=== PATIENT | female | born 1990 | race Caucasian/White ===

== ENCOUNTER 2018-10-26 19:02 | Emergency (ER) | payer BC ==
--- OUTSIDE RECORDS SUMMARY | 2018-10-26 19:04 | XMS REPORT | Clinical Summary ---
:1990 Author Organization [facility] Address [address] [place] [id number] Care Team Providers Name Role Phone Chito Simons MD Primary Care Provider Allergies Active Allergy Reactions Severity Noted Date Comments Cefprozil Rash Low 08/18/2018 Rash all over the body Propoxyphene Other (See Comments) Medium 08/18/2018 Dizziness and N-Acetaminophen blurred vison Medications Not on file Active Problems Not on file Encounters Date Type Specialty Care Team Description 08/16/2018 Transcribe Orders Radiology Martinez Schulz MD Abdominal pain, epigastric (Primary Dx); Nausea; Diarrhea, unspecified type after 10/25/2017 Social History Tobacco Use Types Packs/Day Years Used Date Never Assessed Sex Assigned at Date Recorded Not on file Job Start Date Occupation Industry Not on file Not on file Not on file Travel History Travel Start Travel End No recent travel history available. 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 unspecified type after 10/25/[address] Abdomen Pelvis W Contrast (08/18/2018 3:12 PM ACOUSTICAL INSTALLER) Narrative Performed At EXAMINATION:CT ABDOMEN PELVIS W CONTRAST [facility] CLINICAL HISTORY:R10.13 Epigastric pain, R11.0 Nausea, Abdominal painepigastric COMPARISON:None. TECHNIQUE:CT of the abdomen and pelvis with intravenous contrast. CT imaging was performed with iterative reconstruction techniques and/or automated exposure control to reduce radiation dose. FINDINGS: LOWER THORAX:Unremarkable. HEPATOBILIARY:No focal hepatic lesions. No biliary ductal dilation. Gallbladder is unremarkable. SPLEEN:No splenomegaly. PANCREAS:No focal masses or ductal dilation. ADRENALS:No adrenal nodules. KIDNEYS:No hydronephrosis, stones or solid masses. GI TRACT:Visualized portions of the bowel demonstrate no distention or wall thickening. Normal appendix. PERITONEUM/RETROPERITONEUM:No free air or fluid. No lymphadenopathy. PELVIC ORGANS/BLADDER:Unremarkable. BONES AND SOFT TISSUES:Unremarkable. IMPRESSION: No acute process within the abdomen or pelvis to explain patient's abdominal pain. I personally reviewed the images and the resident's findings and agree with the final report. [facility]-[id number] Procedure Note Interface, Radiology Results Incoming - 08/18/2018 4:12 PM ACOUSTICAL INSTALLER EXAMINATION: CT ABDOMEN PELVIS W CONTRAST CLINICAL HISTORY: R10.13 Epigastric pain, R11.0 Nausea, Abdominal pain epigastric COMPARISON: None. TECHNIQUE: CT of the abdomen and pelvis with intravenous contrast. CT imaging was performed with iterative reconstruction techniques and/or automated exposure control to reduce radiation dose. FINDINGS: LOWER THORAX: Unremarkable. HEPATOBILIARY: No focal hepatic lesions. No biliary ductal dilation. Gallbladder is unremarkable. SPLEEN: No splenomegaly. PANCREAS: No focal masses or ductal dilation. ADRENALS: No adrenal nodules. KIDNEYS: No hydronephrosis, stones or solid masses. GI TRACT: Visualized portions of the bowel demonstrate no distention or wall thickening. Normal appendix. PERITONEUM/RETROPERITONEUM: No free air or fluid. No lymphadenopathy. PELVIC ORGANS/BLADDER: Unremarkable. BONES AND SOFT TISSUES: Unremarkable. IMPRESSION: No acute process within the abdomen or pelvis to explain patient's abdominal pain. I personally reviewed the images and the resident's findings and agree with the final report. [facility]-[id number] Performing Organization Address City/State/Zipcode Phone Number [facility] [id number] [place] [address] after 10/25/2017 Insurance Payer Benefit Plan / Group Subscriber ID Type Phone Address BCBS BCBS CHOICE PPO/FEDERAL EMPL PPO xxxxxxxxxxxx PPO Advance Directives Patient has advance care planning documents on file. For more information, please contact:Krzys[address] [place] [address]
[2018-10-26 19:48] LABS: Absolute Lymphocytes (CBC) 1.6 K/uL (0.7-4.9); Absolute Monocytes 0.3 K/uL (0.1-1.3); Absolute Neutrophil 3.9 K/uL (1.8-8.0); Basophils % 0.4 % (0-1.3); Eosinophils % 1.2 % (0-4.4); Hematocrit 33.1 % (36.0-45.0); Lymphocytes % 27.2 % (15.3-44.8); MPV 8.1 fL (7.6-11.3); Monocytes % 5.8 % (3.3-12.3); RBC Red Blood Cell Count 3.63 M/uL (3.86-4.86)
[2018-10-26] MEDS ORDERED: ACETAMINOPHEN 500 MG TAB ONE (20:02)
[2018-10-26 20:04] LABS: BUN Blood Urea Nitrogen 7 mg/dL (7-18); Bicarbonate 24 mmol/L (21-32); Glucose Level 84 mg/dL (74-106); Potassium 3.2 mmol/L (3.5-5.1); Sodium Level 141 mmol/L (136-145)
--- NOTE | 2018-10-26 21:25 | ER ---
Nurse's Notes [facility] Name: Raza Sanchez Age: 27 yrs Sex: Female : 1990 Arrival Date: 10/26/2018 Time: 19:04 Bed 16 Private MD: Chito Simons Diagnosis: Generalized abdominal pain Presentation: 10/26 19:05 Initial Sepsis Screen: Does the patient meet any 2 criteria? No. Patient's initial cc3 sepsis screen is negative. Does the patient have a suspected source of infection? No. Patient's initial sepsis screen is negative. 19:12 Presenting complaint: Patient states: Abdominal pain to epigastric area that came on lp1 severely today; States hx of abdominal pain prior to , has had endoscopies done with diagnosis of gastritis but wasn't sure if pain was related to ; Denies any vaginal discharge. Transition of care: patient was not received from another setting of care. Onset of symptoms was October 26, 2018. Risk Assessment: Do you want to hurt yourself or someone else? Patient reports no desire to harm self or others. Initial Sepsis Screen:. Care prior to arrival: None. 19:12 Method Of Arrival: Ambulatory lp1 19:12 Acuity: MAUREEN 3 lp1 Triage Assessment: 19:05 General: Appears in no apparent distress. comfortable, Behavior is calm, cooperative, cc3 appropriate for age. Pain: Complains of pain in head Pain currently is 6 out of 10 on a pain scale. Quality of pain is described as aching. EENT: No signs and/or symptoms were reported regarding the EENT system. Neuro: Level of Consciousness is awake, alert, obeys commands, Oriented to person, place, time, situation, Appropriate for age. Cardiovascular: Patient's skin is warm and dry. Respiratory: Airway is patent Respiratory effort is even, unlabored, Respiratory pattern is regular, symmetrical. GI: Abdomen is round 12 weeks as per patient. : No signs and/or symptoms were reported regarding the genitourinary system. Derm: No signs and/or symptoms reported regarding the dermatologic system. Musculoskeletal: Circulation, motion, and sensation intact. Range of motion: intact in all extremities. 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 - Social history:: Smoking status: Patient/guardian denies using tobacco. - Ebola Screening: : No symptoms or risks identified at this time. Screenin:05 Abuse screen: Denies threats or abuse. Denies injuries from another. Nutritional cc3 screening: No deficits noted. Tuberculosis screening: No symptoms or risk factors identified. Fall Risk Ambulatory Aid- None/Bed Rest/Nurse Assist (0 pts). Gait- Normal/Bed Rest/Wheelchair (0 pts) Mental Status- Oriented to own ability (0 pts). Assessment: 19:05 GI: Bowel sounds present X 4 quads. Abd is soft and non tender patient does not cc3 complain of abdominal pain as of the moment. 20:35 Reassessment: Patient appears in no apparent distress at this time. Patient and/or cc3 family updated on plan of care and expected duration. Pain level reassessed. Patient is alert, oriented x 3, equal unlabored respirations, skin warm/dry/pink. 21:40 Reassessment: Patient appears in no apparent distress at this time. Patient and/or cc3 family updated on plan of care and expected duration. Pain level reassessed. Patient is alert, oriented x 3, equal unlabored respirations, skin warm/dry/pink. Dr. Garza discharged the patient home, no prescription given. IV cannula removed and patient left ER vitally stable and ambulatory. Patient denies pain at this time. Patient states feeling better. Patient states symptoms have improved. Vital Signs: 19:15 Weight 77.11 kg; Height 5 ft. 4 in. (162.56 cm); Pain 8/10; lp1 19:20 BP 106 / 54; Pulse 70; Resp 18 S; Temp 98.2(O); Pulse Ox 100% on R/A; Weight 78.02 kg cc3 (R); Height 5 ft. 4 in. (162.56 cm) (R); 20:15 BP 106 / 64; Pulse 71; Resp 17 S; Pulse Ox 100% on R/A; cc3 21:30 BP 108 / 64; Pulse 75; Resp 18 S; Pulse Ox 99% on R/A; cc3 19:20 Body Mass Index 29.52 (78.02 kg, 162.56 cm) cc3 ED Course: 19:04 Patient arrived in ED. rg4 19:04 Chito Simons MD is Private Physician. rg4 19:05 Leyda Charles is Primary Nurse. cc3 19:05 Daquan Garza MD is Attending Physician. ps1 19:05 Patient has correct armband on for positive identification. Bed in low position. Call cc3 light in reach. Side rails up X 1. Pulse ox on. NIBP on. 19:14 Triage completed. lp1 19:15 Arm band placed on left wrist. lp1 19:35 Inserted saline lock: 20 gauge in right antecubital area, using aseptic technique. cc3 Blood collected. 21:23 Dennis Lucas MD is Referral Physician. ps1 21:40 No provider procedures requiring assistance completed. IV discontinued, intact, cc3 bleeding controlled, No redness/swelling at site. Pressure dressing applied. Administered Medications: 19:50 Drug: Tylenol 1000 mg Route: PO; cc3 20:35 Follow up: Response: No adverse reaction; Pain is decreased; headache relieved cc3 Intake: Outcome: 21:24 Discharge ordered by . ps1 21:40 Discharged to home ambulatory. cc3 21:40 Condition: stable 21:40 Discharge instructions given to patient, Instructed on discharge instructions, follow up and referral plans. Demonstrated understanding of instructions, follow-up care. 21:43 Patient left the ED. cc3 Signatures: Ila Mckenna, RN RN lp1 Janiya Brown rg4 Daquan Garza MD MD ps1 Leyda Charles cc3
--- NOTE | 2018-10-26 21:25 | EDPHYS ---
Physician Documentation [facility] Name: Raza Sanchez Age: 27 yrs Sex: Female : 1990 Arrival Date: 10/26/2018 Time: 19:04 Bed 16 Private MD: Chito Simons ED Physician Daquan Garza HPI: 10/26 19:23 This 27 yrs old Female presents to ER via Ambulatory with complaints of ps1 Abdominal Pain, 12 Wks . 19:23 PT is in previous 2/2 failure to progress 2/2 pelvis. Had ps1 previous US for confirmation and dates. Has a hx of gastritis and endometriosis and long hx of non-specific abdominal pain. Today c/o epigastric pain and concern for baby. No VB, ctx, lof, and unable to assess movement. Pain is moderate and non-radiating. No fever, nausea, vomiting, dysuria. Mother is rH negative. . 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 - Social history:: Smoking status: Patient/guardian denies using tobacco. - Ebola Screening: : No symptoms or risks identified at this time. ROS: 19:23 Constitutional: Negative for fever, chills, and weight loss, Eyes: Negative for injury, ps1 pain, redness, and discharge, Cardiovascular: Negative for chest pain, palpitations, and edema, Respiratory: Negative for shortness of breath, cough, wheezing, and pleuritic chest pain, Back: Negative for injury and pain, MS/Extremity: Negative for injury and deformity, Skin: Negative for injury, rash, and discoloration, Neuro: Negative for headache, weakness, numbness, tingling, and seizure. 19:23 Abdomen/GI: Positive for abdominal pain. Exam: 19:23 Constitutional: This is a well developed, well nourished patient who is awake, alert, ps1 and in no acute distress. Head/Face: Normocephalic, atraumatic. Eyes: Pupils equal round and reactive to light, extra-ocular motions intact. Lids and lashes normal. Conjunctiva and sclera are non-icteric and not injected. ENT: Nares patent. No nasal discharge, no septal abnormalities noted. Tympanic membranes are normal and external auditory canals are clear. Oropharynx with no redness, swelling, or masses, exudates, or evidence of obstruction, uvula midline. Mucous membranes moist. Chest/axilla: Normal chest wall appearance and motion. Nontender with no deformity. No lesions are appreciated. Cardiovascular: Regular rate and rhythm. No gallops, murmurs, or rubs. Normal PMI, no JVD. No pulse deficits. Respiratory: Lungs have equal breath sounds bilaterally, clear to auscultation and percussion. No rales, rhonchi or wheezes noted. No increased work of breathing, no retractions or nasal flaring. Abdomen/GI: Soft, non-tender, with normal bowel sounds. No distension or tympany. No guarding or rebound. No evidence of tenderness throughout. Skin: Warm, dry with normal turgor. Normal color with no rashes, no lesions, and no evidence of cellulitis. MS/ Extremity: Pulses equal, no cyanosis. Neurovascular intact. Full, normal range of motion. Neuro: Awake and alert, GCS 15, oriented to person, place, time, and situation. Cranial nerves II-XII grossly intact. Sensory grossly intact. 19:23 Abdomen/GI: POCUS of the abdomen performed at bedside. IUP present with FHT \T\ 158. Small amount of free fluid surrounding the uterus. Possible small DARLIN. This was not an anatomical study. . Vital Signs: 19:15 Weight 77.11 kg; Height 5 ft. 4 in. (162.56 cm); Pain 8/10; lp1 19:20 BP 106 / 54; Pulse 70; Resp 18 S; Temp 98.2(O); Pulse Ox 100% on R/A; Weight 78.02 kg cc3 (R); Height 5 ft. 4 in. (162.56 cm) (R); 20:15 BP 106 / 64; Pulse 71; Resp 17 S; Pulse Ox 100% on R/A; cc3 21:30 BP 108 / 64; Pulse 75; Resp 18 S; Pulse Ox 99% on R/A; cc3 19:20 Body Mass Index 29.52 (78.02 kg, 162.56 cm) cc3 MDM: 19:41 Patient medically screened. ps1 10/26 19:22 Order name: Basic Metabolic Panel; Complete Time: 20:08 [facility] 10/26 19:22 Order name: CBC with Diff; Complete Time: 19:55 [facility] 10/26 19:22 Order name: IV Saline Lock; Complete Time: 19:41 [facility] 10/26 21:18 Order name: Urine Dipstick--Ancillary (enter results); Complete Time: 21:41 cm6 10/26 21:18 Order name: Urine --Ancillary (enter results); Complete Time: 21:41 cm6 10/26 19:22 Order name: Labs collected and sent; Complete Time: 19:41 [facility] 10/26 19:22 Order name: NPO; Complete Time: 19:28 [facility] 10/26 19:22 Order name: Urine Dipstick-Ancillary (obtain specimen); Complete Time: 21:16 ps1 Administered Medications: 19:50 Drug: Tylenol 1000 mg Route: PO; cc3 20:35 Follow up: Response: No adverse reaction; Pain is decreased; headache relieved cc3 Disposition: 10/26/18 21:24 Discharged to Home. Impression: Generalized abdominal pain. - Condition is Stable. - Discharge Instructions: Abdominal Pain, Adult, Pelvic Rest. - Medication Reconciliation Form, Thank You Letter, Antibiotic Education, Prescription Opioid Use, Work release form form. - Follow up: Dennis Lucas MD; When: 48 Hours; Reason: Further diagnostic work-up, Recheck today's complaints, Continuance of care. - Problem is new. Signatures: Dispatcher [employer] EDMS Ila Mckenna RN RN lp1 Daquan Garza MD MD ps1 Leyda Charles cc3 Corrections: (The following items were deleted from the chart) 21:43 21:24 10/26/2018 21:24 Discharged to Home. Impression: Generalized abdominal pain. cc3 Condition is Stable. Forms are Medication Reconciliation Form, Thank You Letter, Antibiotic Education, Prescription Opioid Use. Follow up: Dennis Lucas; When: 48 Hours; Reason: Further diagnostic work-up, Recheck today's complaints, Continuance of care. Problem is new. ps1
[2018-10-26 21:29] LABS: Urine Blood NEGATIVE (NEG); Urine Glucose NEGATIVE (NEG); Urine Protein NEGATIVE (NEG); Urine pH 6.5 (5.0-7.0)
[2018-10-26 21:51] VITALS: TEMP 98.2; O2SAT 100
[2018-10-26 21:52] VITALS: BP 106/64
== END 2018-10-26 21:43 | disposition home or self-care (01) ==
LOC: ER 19:02
DX: O26.892 Other specified pregnancy related conditions, second trimester (principal); K21.9 Gastro-esophageal reflux disease without esophagitis; Z3A.16 16 weeks gestation of pregnancy; Z88.3 Allergy status to other anti-infective agents; Z88.5 Allergy status to narcotic agent
CPT/HCPCS: 36415; 80048; 81003; 81025; 85025; 99284

== ENCOUNTER 2022-06-24 03:43 | Emergency (ER) | payer BC ==
--- OUTSIDE RECORDS SUMMARY | 2022-06-24 03:47 | XMS REPORT | Continuity of Care Document ---
:1990 Author Organization [facility] t Address [address] [place] [address] Care Team Providers Name Role Phone Kristyn Cole MD, Chito Danielson Primary Care Physician [phone] Deirdre Lay Attending Clinician Unavailable Angle Mccurdy MD Attending Clinician Franklin Baez Attending Clinician Unavailable Doctor Unassigned, [place] Attending Clinician Unavailable Gumaro cMkeon DO Attending Clinician TRAVIS LAYNE Attending Clinician Unavailable Shawn Smart Attending Clinician Unavailable Deirdre Lay Admitting Clinician Unavailable Chito Simons Admitting Clinician Unavailable Physician, No Primary or Family Admitting Clinician Unavaila ble Payers Payer Name Policy Type Policy Number Effective Date Expiration Date S ernesto BCBSTX PPO AND [id number] 2020 00:00:00 OUT OF STATE Problems Condition Condition Condition Status Onset Resolution Last Treating Co mments Source Name Details Category Date Date Treatment Clinician Date No known No known Disease [place] active active Health problems problems Allergies, Adverse Reactions, Alerts Allergy Allergy Status Severity Reaction(s) Onset Inactive Treating Comm ents Source Name Type Date Date Clinician propoxyp DA Active SV BLURRY 2021-07 [facility] V[facility]-17 [facility] [place] cefprozi DA Active SV RASH 2021-07 [facility] l 1-17 [facility] [place] Propoxyp Propensi Active 2021-07 [facility] hene ty to 07-11 Health adverse 00:00: reaction 00 s Cephalos Propensi Active 2021-07 UT porins ty to 07-11 Health adverse 00:00: reaction 00 s cefprozi DA Active SV RASH 2021-07 [facility] 0-04 [facility] 00:[facility]: [facility] [place] propoxyp DA Active SV BLURRY 2020-07 [facility] VISION 2-15 [facility] 00:00: [facility] [place] acetamin DA Active SV BLURRY 2020-07 [facility] ophen VISION 2-15 Woman[facility] 00:00: [facility] [place] cefprozi DA Active SV RASH 2020-07 [facility] l 2-15 [facility] 00:00: [facility] [place] propoxyp DA Active U BLURRY 2019-07 [facility] VISION 0-28 [facility] 00:00: [facility] [place] acetamin DA Active U BLURRY 2019-07 [facility] ophen VISION 0-28 Woman[facility] 00:00: [facility] [place] cefprozi DA Active U RASH 2019-07 H[facility] l 0-28 [facility] 00:00: [facility] [place] propoxyp DA Active U 2019-07 [facility] hene 0-28 West 00:00: [address] acetamin DA Active U 2019-07 [facility] ophen 0-28 West 00:00: [address] cefprozi DA Active U 2019- HCA l 0-28 West 00:00: [address] propoxyp DA Active DE 2018-07 [facility] hene 0-18 Clear napsylat 00:00: Garcia e 00 [facility] cefprozi DA Active DE 2018-07 HCA l 0-18 Clear 00:00: [place] 00 [facility] Propoxyp Propensi Active Other - See Dizzines s Univers hene ty to comments 2-08 and ity of N-Acetam adverse 00:00: blurred [place] [facility] Cef[facility] Propensi Active Rash 2018- Rash all UT l ty to 2-08 over the Health adverse 00:00: body reaction 00 s Cefprozi Propensi Active Rash 0 Rash all Meth alexander l ty to 2-[address] adverse 00:00: body Hospita reaction 00 l s to drug Propoxyp Propensi Active Other (See Dizziness Methodi hene ty to Comments) [address] N-Acetam adverse 00:00: blurred Hospit a inophen reaction 00 vison l s to drug PROPOXYP DRUG Active Med Other-Cmnt 2018-0 Univ ers HENE 2-08 ity of N-ACETAM 00:00: [place] INOPHEN 00 [facility] CEFPROZI DRUG Active Low Rash 2018-0 Univers L INGREDI 2-08 ity of 00:00: [address] propoxyp DA Active DE 2013-07 [facility] hene 1-11 Clear napsylat 00:00: [place] e [facility] cefprozi DA Active DE 2013-07 HCA l 1-11 Clear 00:00: [place] [facility] NO KNOWN Drug Active Univers ALLERGIE Class ity of S [facility] Social History Social Habit Start Date Stop Date Quantity Comments Source Cigarettes smoked 2022-05-11 2022-05-11 [facility] current (pack per 00:00:00 00:00:00 day) - Reported Cigarette 2022-05-11 2022-05-11 [facility] pack-years 00:00:00 00:00:00 Tobacco use and 2022-05-11 2022-05-11 Smokeless tobacco [facility] exposure 00:00:00 00:00:00 non-user Alcohol intake 2022-05-11 2022-05-11 Ex-drinker [facility] 00:00:00 00:00:00 (finding) Exposure to 2022-04-30 2022-05-10 Not sure [facility] SARS-CoV-2 (event) 00:00:00 22:47:00 History of tobacco 2009-02-08 2015-02-08 Cigarette Smoker [facility] use 00:00:00 00:00:00 Sex Ass[birth year] At [birth year] [facility] Smoking Status Start Date Stop Date Source Tobacco smoking [facility] consumption unknown Ex-smoker 2022-05-11 00:00:00 2022-05-11 [facility] 00:00:00 Never smoker [facility] Medications Ordered Filled Start Stop Current Ordering Indication Dosage Frequency Signature Comments Components Source Medication Medication Date Date Medication? Clinician (SIG) Name Name jessica 2021-07- Yes [id number] 1{tbl} Q6H Take 1 [place] en-codeine 07-11 tablet by [facility] (Tylenol w/ 00:00: 05:59 mouth Codeine #3) 00 :00 every 6 300-30 MG (six) tablet hours if needed for severe pain for up to 5 days. cetirizine 2021-07 Yes UT (ZyrTEC 0-24 Health ALLERGY) 10 00:00: MG tablet 00 diphenhydrA 2021-07 Yes UT MINE 0-24 Health (Diphen) 25 00:00: MG tablet 00 Dextrometho 2021-07 Yes UT rphan-guaiF 0-18 [facility] ENesin 00:00: (Mucinex 00 DM) 30-600 MG tablet sustained-r elease 12 hour buPROPion Yes TAKE 1 [place] XL 9-26 TABLET BY [facility] (Wellbutrin 00:00: MOUTH XL) 300 MG 00 EVERY DAY 24 hr IN THE tablet MORNING FOR 90 DAYS Ferrous Yes UT Sulfate 3-14 Health Dried ER 00:00: (Slow 00 Release Iron) 45 MG tablet controlled- release Magnesium Yes UT 250 MG 3-14 Health tablet 00:00: 00 Ascorbic Yes UT Acid 3-14 Health (vitamin C) 00:00: 250 MG 00 tablet docusate Yes UT sodium 3-14 Health (Stool 00:00: Softener) 00 100 MG tablet Esomeprazol Yes UT e Magnesium 2-01 Health 20 MG 00:00: tablet 00 delayed-rel ease esomeprazol Yes 20mg Inject 20 U nivers e 20 mg 1-19 mg ity of injection 21:17[place] daily Medical with Branch breakfast. esomeprazol Yes 20mg Inject 20 U nivers e 20 mg 1-19 mg ity of injection 15:17: [place] daily Medical with Branch breakfast. fluconazole Yes Univer s 150 mg 1-14 ity of tablet 00:00: [place] [facility] Branch fluconazole Yes Univer s 150 mg 1-14 ity of tablet 00:00: [place] [address] Medical Branch metroNIDAZO 2019- Yes 500mg Take 500 U nivers LE 500 mg 2-17 mg by ity of tablet 00:00: mouth 2 [place] (two) Medical times Branch daily. metroNIDAZO 2019-07 Yes 500mg Take 500 U nivers LE 500 mg 2-17 mg by ity of tablet 00:00: mouth 2 [place] (two) Medical times Branch daily. HYDROcodone 2019-07 Yes TAKE 1 Univ ers -acetaminop 1-03 TABLET BY ity of hen 10-325 00:00: MOUTH [place] mg tablet 00 EVERY 4 Medical HOURS Branch NEEDED FOR PAIN HYDROcodone 2019-07 Yes TAKE 1 Univ ers -acetaminop 1-03 TABLET BY ity of hen 10-325 00:00: MOUTH [place] mg tablet 00 EVERY 4 Medical HOURS Branch NEEDED FOR PAIN Immunizations Ordered Filled Immunization Date Status Comments [facility] e Immunization Name Name SARS-COV-2 COVID-19 2021-01-12 Completed Unive rsity of PFIZER VACCINE 00:00:00 [facility] SARS-COV-2 COVID-19 2020-12-22 Completed Unive rsity of PFIZER VACCINE 00:00:00 [facility] Influenza Virus 2020-07-29 Completed Universit y of Vaccine Quad .5 mL 00:00:00 [place] [facility] 6+ MO Branch Influenza Virus 2020-07-29 Completed Universit y of Vaccine Quad .5 mL 00:00:00 [facility] 6+ MO Branch Vital Signs Vital Name Observation Time Observation Value Comments Source Body height 2022-05-11 20:29:00 162.6 cm [facility] Body weight 2022-05-11 20:29:00 83.008 kg [facility] BMI 2022-05-11 20:29:00 31.41 [facility]2 [facility] Systolic blood pressure 2022-05-11 20:29:00 130 mm[Hg] [facility] Diastolic blood pressure 2022-05-11 20:29:00 81 mm[Hg] [facility] Heart rate 2022-05-11 20:29:00 116 /min [facility] Body temperature 2022-05-11 20:29:00 34.78 Shaye [facility] Procedures Procedure Date / Time Performed Performing Clinician [facility] e [id number] 2022-05-27 00:00:00 [facility] [id number] 2022-05-27 00:00:00 [facility] GENERAL 2022-05-12 01:32:51 Angle Mccurdy [facility] EXTERNAL PROVIDER 2021-07-13 06:01:00 Doctor Unassigned, No Univ [facility] RECORDS Name Medical Branch Plan of Care Planned Activity Planned Date Details Comments Source Future Scheduled 2022-05-16 Screening for [facility] Test 10:32:47 malignant neoplasm of cervix (procedure) [code = 485854034] Future Scheduled 2022-05-16 INFLUENZA VACCINE [facility] Test 10:32:47 [code = INFLUENZA VACCINE] Future Scheduled 2022-05-16 [facility] Test 10:32:47 VACCINES (1 of 3 - 3-dose series) [code = HEPATITIS B VACCINES (1 of 3 - 3-dose series)] Future Scheduled 2022-05-16 [facility] 10:32:47 (#1) [code = COVID-19 VACCINE (#1)] Future Scheduled 2022-05-16 [facility] Test 10:32:47 VACCINES (1 of 3 - 3-dose series) [code = HEPATITIS B VACCINES (1 of 3 - 3-dose series)] Future Scheduled 2022-05-16 COVID-19 VACCINE [facility] Test 10:32:47 (#1) [code = COVID-19 VACCINE (#1)] Future Scheduled 2022-05-16 Screening for [facility] Test 10:32:47 malignant neoplasm of cervix (procedure) [code = 006608451] Future Scheduled 2022-05-16 INFLUENZA VACCINE Method ist Hospital Test 10:32:47 [code = INFLUENZA VACCINE] Future Scheduled 2022-05-16 Screening for [facility] Test 10:32:47 malignant neoplasm of cervix (procedure) [code = 116443380] Future Scheduled 2022-05-16 INFLUENZA VACCINE Method ist Hospital Test 10:32:47 [code = INFLUENZA VACCINE] Future Scheduled 2022-05-16 [facility] Test 10:32:47 VACCINES (1 of 3 - 3-dose series) [code = HEPATITIS B VACCINES (1 of 3 - 3-dose series)] Future Scheduled 2022-05-16 COVID-19 VACCINE [facility] Test 10:32:47 (#1) [code = COVID-19 VACCINE (#1)] Future Scheduled 2022-03-13 COVID-19 VACCINE [facility] Test 00:02:42 (#1) [code = COVID-19 VACCINE (#1)] Future Scheduled 2022-03-13 Screening for [facility] Test 00:02:42 malignant neoplasm of cervix (procedure) [code = 148285815] Future Scheduled 2022-03-13 INFLUENZA VACCINE Method ist Hospital Test 00:02:42 [code = INFLUENZA VACCINE] Future Scheduled 2022-03-13 [facility] Test 00:02:42 VACCINES (1 of 3 - 3-dose series) [code = HEPATITIS B VACCINES (1 of 3 - 3-dose series)] Future Scheduled 2022-03-13 COVID-19 VACCINE Method[facility] Hospital Test 00:02:42 (#1) [code = COVID-19 VACCINE (#1)] Future Scheduled 2022-03-13 Screening for [facility] Test 00:02:42 malignant neoplasm of cervix (procedure) [code = 123840227] Future Scheduled 2022-03-13 INFLUENZA VACCINE Method ist Hospital Test 00:02:42 [code = INFLUENZA VACCINE] Future Scheduled 2022-03-13 [facility]ITIS B [facility] Test 00:02:42 VACCINES (1 of 3 - 3-dose series) [code = HEPATITIS B VACCINES (1 of 3 - 3-dose series)] Encounters Start End Encounter Admission Attending Care Care Encounter Source Date/Time Date/Time Type Type Clinicians Facility Department ID 2022-05-11 Outpatient [facility] [id number] [place] 08:01:25 [id number] [facility] 2022-05-10 Outpatient [facility] [id number] [place] 07:50:35 [id number] [facility] 2022-05-06 Outpatient [facility] [id number] [place] 14:36:04 [id number] [facility] 2022-05-27 2022-05-30 Inpatient EDILSON Lay [facility] OBPP [id number] [id number] [facility] 09:10:00 14:45:00 Deirdre [facility] 2022-05-11 2022-05-11 Office EDER Mccurdy [id number] [place] 15:00:00 16:18:31 Visit Angle BROOKE [id number] H [facility] [id number] 2022-04-13 2022-04-13 Emergency EL Alireza [facility] DOYLE F000 [id number] [facility] 19:05:00 22:10:00 Deirdre 94 [facility] [place] 2022-03-19 2022-03-19 Emergency EM Ohlemac, [facility] DOYLE [id number] [id number] [facility] 11:21:00 15:15:00 Deirdre 47 [facility] [place] 2022-02-25 2022-02-25 Emergency EM Laura-G [facility] VALENTINO F000 [id number] [facility] 18:12:00 22:31:00 omeken, 84 [facility] [place] [facility] 2021-07-13 2021-07-13 Orders Doctor GANN [id number] Univers 00:00:00 00:00:00 Only Unassigned, STEPHEN [id number] ity of [place] [facility] [id number] Jorge as [id number] Medi daisy [address] [place] 2021-06-25 2021-06-25 Outpatient WILIAM McphersonWH [id number] [facility] 13:40:00 13:40:00 Deirdre 29 [facility] [place] [facility] 2020-12-22 2020-12-22 Outpatient [facility] [id number] Univers 11:10:00 [facility]10[facility] 2020-09[facility] 2020-09-30 [facility] [id number] Univers 00:00:00 00:00:00 Outreach Gumaro PRIMARY [id number] i ty of [facility] [id number] Kiersten DOOLEY [id number] Or dical 388 [place] 2020-07-29 2020-07-29 Outpatient R TRAVIS LAYNE [facility] [id number] Univers 14:30:00 14:30:00 [facility] 2020-05-13 2020-05-13 Outpatient WILIAM SmartU SURG [id number] [facility] 10:25:00 10:25:00 Shawn 40 [facility] Results Test Description Test Time Test Comments Results Result Comments Source SURGICAL 2022-05-31 17:25:00 Test Item Value Reference Range Interpretation Comme nts SURGICAL RUN DATE: (test 05/31/22 [facility] PAGE 1 RUN TIME: 1725 Specimen Inquiry RUN USER: INTERFACE code = PATIENT: ANA CRISTINA DIAZ LOC: STACIE U #: [id number] AGE/SX: 31/F ROOM: RE05/27/22REG DR: Belle Lay : 89 BED: A DIS: 05/30/22 STATUS: DIS IN TLOC: SPEC #: [id number] RECD: STATUS: DESTINEY RE #: [id number] ASPEN: 05/27/221123 [facility] DR: Deirdre Lay MD ENTE RED: 05/28/22 SP TYPE: SURGICAL OTHR DR: No Primary or Family Physician Chito Simons MDORDERED: AN ATOMIC SPEC/2, SPEC TRACK, / COPIES TO: No Primary or Family Physician Deirdre Lay MD [address] [facility] [address] [place] [address] [email or web address] Chito Simons MD [address] [place] [address] PROCEDURES: [id number] (05/28/22) TISSUES: A. FALLOPIAN TUBE, RIGHT B. FALLOPIAN TUBE, LEFT FINAL DIAGNOSIS A. FALLOPIAN TUBE, RIGHT, EXCISION FOR ST ERILIZATION: - Fallopian tube, completely transected, with paratubal cyst. B. FALLOPIAN TUBE, LEFT, EXC ISION FOR STERILIZATION: - Fallopian tube, completely transected, with paratubal cyst. GROSS DESCRI PTION A. -Received in formalin labeled with Patient's name, , MRN and "right fallopian tube";consi sts of a fimbriated fallopian tube that is 7 x 0.8 cm, displays a single paratubalcyst that is 0.8 cm diameter. Upon sectioning reveals an unremarkable lumen that averages0.3 cm diameter. Filter Machine Operator sec tions are submitted in A1. B. -Received in formalin labeled with Patient's name, ARMANDO, N and "left fal lopian tube ";consists of a fimbriated fallopian tube that is 6.5 x 0.7 cm, displays multiple paratubalc yst measuring 0.1-0.3 cm each. Upon sectioning reveals an unremarkable lumen thataverages 0.3 cm diameter . Filter Machine Operator sections are submitted in B1. XZ 05/28/22 CONTINUED ON NEXT PAGE RUN DATE: 05/31/22 [facility] PAGE 2 RUN TIME: 1725 Specimen Inquiry RUN USER: INTERFACE SPEC #: [id number] PATIENT: ANA CRISTINA BOTELLO SHAUNA #[id number] (Continued) DARIANA DESCRIPTION (Continued ) Technical component performed at [facility],[address], [place] [address] Unless gross only, the diagnosis is based upon microscopic examination.Immunohistochemistry: This test was developed and its performance characteristicsdetermined by this laboratory. It has not been approved nor does it ne ed approval by [place] FDA. Appropriate positive and negative controls are reviewed and judged to beacc eptable. This laboratory is certified under the Clinical Laboratory ImprovementAmendments (CLIA- 88) as qualified to perform high complexity clinical laboratory testing. CLINICAL INFORMATION 2, OUT OF BODY/ IN FORMALIN: SPECIMEN A: 1124A/2230P, SPECIMEN B: 1152A/2230P, ,39.2 WEEKS. Signed SIGNATURE ON FILE Elroy Palumbo 05/31/22 17 25 END OF REPORT CBC W/AUTO [id number] 14:10:00 Test Item Value Reference Range Interpretation Comments WHITE BLOOD CELL (test code = WBC) 7.6 K/mm3 6.5-12.3 N RED BLOOD CELL (test code = RBC) 3.23 M/mm3 3.51-4.69 L HEMOGLOBIN (test code = HGB) 10.8 g/dL 10.1-13.8 N HEMATOCRIT (test code = HCT) 32.4 % 32.5-41.8 L MEAN CELL VOLUME (test code = MCV) 100.3 fL 84.6-96.6 H MEAN CELL HGB (test code = MCH) 33.4 pg 27.3-33.9 N MEAN CELL HGB CONCETRATION (test 33.3 gm/dL 32.0-34.2 N code = MCHC) RED CELL DISTRIBUTION WIDTH (test 13.2 % 12.2-16.3 N code = RDW) PLATELET COUNT (test code = PLT) 166 K/mm3 134-363 N MEAN PLATELET VOLUME (test code = 10.3 fL 9.2-12.7 N MPV) NEUTROPHIL % (test code = NT%) 65.9 % 57.9-77.3 N LYMPHOCYTE % (test code = LY%) 25.5 % 14.5-29.7 N MONOCYTE % (test code = MO%) 5.9 % 3.6-10.2 N EOSINOPHIL % (test code = EO%) 1.8 % 0.0-3.0 N BASOPHIL % (test code = BA%) 0.4 % 0.1-0.9 N NEUTROPHIL # (test code = NT#) 5.0 K/mm3 LYMPHOCYTE # (test code = LY#) 1.9 K/mm3 MONOCYTE # (test code = MO#) 0.5 K/mm3 EOSINOPHIL # (test code = EO#) 0.14 K/mm3 BASOPHIL # (test code = BA#) 0.0 K/mm3 RBC MORPHOLOGY REQUIRED (test code NORMAL NORMAL = RBCM) PLATELET MORPHOLOGY REQUIRED (test NORMAL NORMAL code = PLTMR) HGB [id number] 08:10:00 Test Item Value Reference Range Interpretation Comments HEMOGLOBIN (test code = HGB) 10.5 g/dL 10.1-13.8 N HEMATOCRIT (test code = HCT) 31.2 % 32.5-41.[address] - [facility] BIO PH MT W/O [id number] 00:00:00 [facility] BOTELLO : 1990 Sex: F Patient Name: ANA CRISTINA BOTELLO Unit No: [id number] EXAMS: CPT CODE: [id number] US FET BIO PH MT W/O NST 56330 PROCEDURE INFORMATION: Exam: US Biophysical Profile Without Non-Stress TestExam date and time: 04/13/2022 9:30 PM Age: 31 years old Clinical indication: status abnormalities: ; movements, decreased; Single gestation; Third trimester (=28 weeks 0 days); ; Add itional info: Dfm @ 33 weeks TECHNIQUE: Imaging protocol: US biophysical profile without non-stress testing. ADDITIONAL STUDY INFORMATION: Amniotic fluid index: ADRIANA is 10.7 cm. heart rate: 135 bpm COMPARISON: OT US FET BIO PH MT W/O NST 03/19/2022 12:04 PM Gestational age (Established): 33 weeks 0days Estimated due date (Established): 06/01/2022 Cephalic presentation. The cervix is closed with ameasured length of 3.6 cm. Posterior fundal grade 2 placenta without placenta previa. Normal amniotic fluid index of 10.7 cm. heart rate of 135 bpm. The fetus meets the biophysical profile criteria for breathing movement, gross body movement, tone and amniotic fluid volume giving a bi ophysical profile score of 8/8. The ovaries were not identified. No adnexal masses or pelvic fluid collections are noted. IMPRESSION: Single intrauterine in cephalic presentation with heart rate of 135 bpm. No evidence of placenta previa. Normal amniotic fluid index of 10.7 cm. biophysical profile score of 8/8. SL: 131 at 2244 Reported and signed by: Db Gaines MD [facility] NAME: ANA CRISTINA BOTELLO Radiology Department PHYS: Ritika Mejias MD [address] : 1990 AGE: 31 SEX: F [place], [place] [address] LOC: F.DOYLE PHONE #: [phone] EXAM DATE: 04/13/2022 STATUS: REG ER FAX #: [phone] RAD NO: Page 1 Signed Report (CONTINUED) Patient Name: ANA CRISTINA BOTELLO Unit No: [id number] EXAMS: CPT CODE: [id number] US FET BIO PH MT W/O NST 40939 (Continued) CC: Ritika Wills MD; Deirdre Lay MD Technologist: Farideh Goodwin RDMS Probe: Trnscrbd D/ (2243) GCD.CPS Orig Print D/T: S: 04/13/2022 (2243) [facility] NAME: GIRISHSONAMCARISSAANA CRISTINAHimanshu KELLEYE Radiology Department PHYS: Ritika Mejias MD [address] : 1990 AGE: 31 SEX: [place] [address] LOC: ZEHRAED PHONE #: [phone] EXAM DATE: 04/13/2022 STATUS: REG ER FAX #: [phone] RAD NO: Page 2 Signed Report Patient Name: ANA CRISTINA BOTELLO Unit No: [id number] EXAMS: CPT CODE: [id number] US FET BIO PH MT W/O NST 12310 (Continued) [facility] NAME: ANA CRISTINA BOTELLO Radiology Department PHYS: Ritika Mejias MD [address] : 1990 AGE: 31 SEX: [place] [address] ACCT NO: [id number] LOC: SanjayDOYLE PHONE #: [phone] EXAM DATE: 04/13/2022 STATUS: REG ER FAX #: [phone] RAD NO: Page 3 Signed Report- US FET BIO PH MT W/O NST 2022-03-19 00:00:00 [facility] : 1990 Sex: F Patient Name: ANA CRISTINA BOTELLO Unit No: [id number] EXAMS: CPT CODE: [id number] US FET BIO PH MT W/O NST 28147 PROCEDURE INFORMATION: Exam: US Biophysical Profile Without Non-Stress TestExam date and time: 03/19/2022 12:04 PM Age: 31 years old Clinical indication: status abnormalities: ; movements, decreased; Single gestation; Third trimester (=28 weeks 0 days); ; Prior surgery; Additional info: Jose L TECHNIQUE: Imaging protocol: US biophysical profile without non-stress testing. COMPARISON: OT US LTD 02/25/2022 7:30 PM FINDINGS: IRASEMA (known) 06/08/2022. GA (known IRASEMA) 29 weeks 3 days heart rate: 145 bpm Presentation: Breech Placenta: Posterior fundal, grade 2, no evidence of placenta previa. Amniotic fluid index: 15.2 cm Cervix: 3.5 cm. BIOPHYSICAL PROFILE: Breathin/2 Gross body movements: 2/2 tone: 2/2 Qualitative amniotic fluid: 2/2 Biophysical Profile Score: 8/8 UMBILICAL ARTERY S/D ratio: not ordered IMPRESSION: Biophysical profile score is 8 out of 8. at 1234 Reported and signed by: Shruthi Fontana MD CC: Deirdre Lay MD Technologist: Emma Stephenson RDMS Probe: Trnscrbd D/ (1234) GCD.CPS Orig Print D/T: S: 03/19/2022 (1234) [facility] NAME: ANA CRISTINA BOTELLO Radiology Department PHYS: Deirdre Khoury [address] : 1990 AGE: 31 SEX: [place] [address] LOC: KATY PHONE #: [phone] EXAM DATE: 03/19/2022 STATUS: REG ER FAX #: [phone] RAD NO: Page1 Signed Report Patient Name: ANA CRISTINA BOTELLO Unit No: [id number] EXAMS: CPT CODE: [id number] [facility] BIO PH MT W/O NST 07756 (Continued) [facility] NAME: ANA CRISTINA BOTELLO WARRENDightondiology Department PHYS: Deirdre Khoury [address] : 1990 AGE: 31 SEX: [place] [address] LOC: KATY PHONE #: [phone] EXAM DATE: 03/19/2022 STATUS: REG ER FAX #: [phone] RAD NO: Page 2 Signed ReportCBC W/AUTO [id number] 19:31:00 Test Item Value Reference Range Interpretation Comments WHITE BLOOD CELL (test code = WBC) 8.2 K/mm3 6.5-12.3 N RED BLOOD CELL (test code = RBC) 3.59 M/mm3 3.51-4.69 N HEMOGLOBIN (test code = HGB) 11.8 g/dL 10.1-13.8 N HEMATOCRIT (test code = HCT) 34.2 % 32.5-41.8 N MEAN CELL VOLUME (test code = MCV) 95.3 fL 84.6-96.6 N MEAN CELL HGB (test code = MCH) 32.9 pg 27.3-33.9 N MEAN CELL HGB CONCETRATION (test 34.5 gm/dL 32.0-34.2 H code = MCHC) RED CELL DISTRIBUTION WIDTH (test 12.6 % 12.2-16.3 N code = RDW) PLATELET COUNT (test code = PLT) 196 K/mm3 134-363 N MEAN PLATELET VOLUME (test code = 10.2 fL 9.2-12.7 N MPV) NEUTROPHIL % (test code = NT%) 72.2 % 57.9-77.3 N LYMPHOCYTE % (test code = LY%) 21.7 % 14.5-29.7 N MONOCYTE % (test code = MO%) 4.9 % 3.6-10.2 N EOSINOPHIL % (test code = EO%) 0.6 % 0.0-3.0 N BASOPHIL % (test code = BA%) 0.1 % 0.1-0.9 N NEUTROPHIL # (test code = NT#) 5.9 K/mm3 LYMPHOCYTE # (test code = LY#) 1.8 K/mm3 MONOCYTE # (test code = MO#) 0.4 K/mm3 EOSINOPHIL # (test code = EO#) 0.05 K/mm3 BASOPHIL # (test code = BA#) 0.0 K/mm3 RBC MORPHOLOGY REQUIRED (test code NORMAL NORMAL = RBCM) PLATELET MORPHOLOGY REQUIRED (test NORMAL NORMAL code = PLTMR) COMPREHENSIVE METABOLIC [id number] 19:24:00 Test Item Value Reference Range Interpretation Comments SODIUM (test code = NA) 139 mEq/L 135-145 N POTASSIUM (test code = K) 4.0 mEq/L 3.5-5.0 N CHLORIDE (test code = CL) 102 mEq/L 100-115 N CARBON DIOXIDE (test code = CO2) 28 mEq/L 22-31 N ANION GAP (test code = GAP) 12.70 10-20 N GLUCOSE (test code = GLU) 82 mg/dL 65-110 N BLOOD UREA NITROGEN (test code = 8 mg/dL 7-18 N BUN) GLOMERULAR FILTRATION RATE (test 145 ml/min >60 N code = GFR) CREATININE (test code = CREAT) 0.5 mg/dL 0.5-1.0 N TOTAL PROTEIN (test code = PROT) 6.8 gm/dL 6.3-8.2 N ALBUMIN (test code = ALB) 3.4 gm/dL 3.4-4.8 N CALCIUM (test code = CA) 9.0 mg/dL 8.4-10.2 N BILIRUBIN TOTAL (test code = BILT) 0.3 mg/dL 0.2-1.0 N SGOT/AST (test code = AST) 18 units/L 15-37 N SGPT/ALT (test code = ALT) 21 units/L 12-78 N ALKALINE PHOSPHATASE TOTAL (test 53 units/L 46-116 N code = ALKP) UA RFLX MICR CULT IF [id number] 19:04:00 Test Item Value Reference Range Interpretation Comments UA COLOR (test code = COLU) YELLOW YELLOW UA APPEARANCE (test code = CLEAR CLEAR APPU) UA GLUCOSE DIPSTICK (test code NEGATIVE NEG = DGLUU) UA BILIRUBIN DIPSTICK (test NEGATIVE NEG code = BILU) UA KETONE DIPSTICK (test code NEGATIVE NEG = KETU) UA SPECIFIC GRAVITY (test code 1.017 1.001-1.035 N = SGU) UA BLOOD DIPSTICK (test code = NEG NEG GOLDEN) UA PH DIPSTICK (test code = 7.0 5-9 PRITI) UA PROTEIN DIPSTICK (test code NEGATIVE NEG = PROU) UA UROBILINIOGEN DIPSTICK NEGATIVE mg/dL NEG (test code = URO) UA NITRITE DIPSTICK (test code NEG NEG = KOREY) UA LEUKOCYTE ESTERASE DIPSTICK NEG NEG (test code = LEUU) UA WBC (test code = WBCU) 0-2 #/hpf NONE SEEN UA EPITHELIAL CELLS (test code RARE #/HPF RARE-FEW = EPIU) UA MUCUS (test code = MUCU) RARE NONE SEEN Indication for culture: Suprapubic PainSpecimen Description: CLEAN CATCH- US [id number] 00:00:00 [facility] : 1990 Sex: F Patient Name: ANA CRISTINA BOTELLO Unit No: [id number] EXAMS: CPT CODE: [id number] US LTD 29627 PROCEDURE INFORMATION: Exam: US , Limited Exam date and time: 02/25/2022 7:30 PM Age: 31 years old Clinical indication: Screening exam; Other: evaluation after toxic exposure 25 weeks; LABS AND CLINICAL REPORTS: Estimated due date (Established): 06/08/2022 TECHNIQUE: I maging protocol: Real-time ultrasound of the maternal uterus with image documentation. Examfocused on the clinical indication. COMPARISON: No relevant prior studies available. FINDINGS: Gestation: Live single intrauterine gestation. Presentation: Transverse, head maternal left heart rate: 147 bpm Amniotic fluid index: ADRIANA is 14.3 cm. Placenta: Posteriorly situated without previa Cervix: Closed, 4.2 cm MATERNAL: Cervix: Cervical length measures 4.2 cm. Right ovary/adnexa: Right ovary measures 2.8 cm x 2 cm x 1.7 cm. Right ovarian volume is 4.9 mL. Left ovary/adnexa: Left ovary measures 3.2 cm x 2.6 cm x 1.6 cm. Left ovarian volume is 6.9 mL. IMPRESSION: Live single intrauterine gest ation Normal ADRIANA Unremarkable appearance of placenta and cervix at 2101 Reported and signed by: Lester Barr MD CC: Franklin Baez MD; Chito Simons MD Technologist: Ana Mohan RDMS Probe: Trnscrbd D/ (2100) GCD.CPS Orig Print D/T: S: 02/25/2022 (2150) [facility] NAME: ANA CRISTINA BOTELLO Radiology Department PHYS: Franklin Salazar [address] : 1990 AGE: 31 SEX: F [place], [place] [address] LOC: JORGE PHONE #: [phone] EXAM DATE: 02/25/2022 STATUS: REG ER FAX #: [phone] RAD NO: Page 1 Signed Report Patient Name: GIRISHSONAMCARISSAANA CRISTINA Unit No: [id number] EXAMS: CPT CODE: [id number] US LTD 50238 (Continued) [facility] NAME: ANA CRISTINA BOTELLO SHAUNA Radiology Department PHYS: [place] Abisai Laura-RinconFranklin [address] : 1990 AGE: 31 SEX: F [place], [place] [address] LOC: JORGE PHONE #: [phone] EXAM DATE: 02/25/2022 STATUS: REG ER FAX #: [phone] RAD NO: Page 2 Signed [id number] 16:56:00 Test Item Value Reference Range Interpretation Comments SURGICAL (test code = SR) -----RUN DATE: 07/01/21 [facility] PAGE 1 RUN TIME: 1656 Specimen Inquiry RUN USER: INTERFACE -----PATIENT: HAYLEETRAMAINEFEROZANA CRISTINA VILLATORO LOC: [place] U #: [id number] AGE/SX: 30/F ROOM: RE06/25/21REG DR: Deirdre Lay : [birth year] BED: DIS: STATUS: PRE SDC TLOC: ----- SPEC #: [id number] RECD: 06/25/21 STATUS: DESTINEY KEMP #: [id number] ASPEN: 06/25/21 DR: Deirdre Lay MD ENTERED: 06/25/21 SP TYPE: SURGICAL OTHR DR: Chito Simons MD ORDERED: ANATOMIC SPEC, SPEC TRACK, [id number] COPIES TO: Deirdre Lay MD [address] [facility] [address] [place] [address] [email or web address] Chito Simons MD [address] [address] PROCEDURES: [id number] (06/25/21) TISSUES: A. PRODUCTS OF CONCEPTION - SPONTANEOUS/MISSED FINAL DIAGNOSIS UTERINE CONTENTS, PRODUCTS OF CONCEPTION:- Immature chorionic villi, fragments of inflamed and necrotic decidua, and gestationalendometrium, consistent with products of conception. GROSS DESCRIPTION The specimen is received in formalin labeled, "products of conception" and consists ofmultiple irregular brown- zamarripa spongy tissues admixed with abundant amount of friable bloodclot material measuring 4.2 x 2.5 x 0.5 cm in aggregate. The specimen is entirelysubmitted in blocks A1-A5 Technical component performed at [facility],[id number] , [place] [address] Unless gross only, the diagnosis is based upon microscopic examination.Immunohistochemis try: This test was developed and its performance characteristicsdetermined by this laboratory. It has not been approved nor does it need approval by [place] FDA. Appropriate positive and negative controls are reviewed and judged to beacceptable. This laboratory is certified under the Clinical Laboratory ImprovementAmendments (CLIA-88) as qualified to perform high complexity clinical laboratory testing. CONTINUED ON NEXT PAGE -----RUN DATE: 07/01/21 [facility] PAGE 2 RUN TIME: 1655 Specimen Inquiry RUN USER: INTERFACE -----SPEC #: [id number] PATIENT: ANA CRISTINA BOTELLO #[id number] (Continued) CLINICAL INFORMATION MISSED Signed SIGNATURE ON FILE Arlyn Olivares 07/01/211655 ----- END OF REPORT COVID 19 Asymptomatic IH [id number] 19:51:00 Test Item Value Reference Range Interpretation Comments COVID 19 NEGATIVE NEGATIVE This test has b een Asymptomatic IH AG authorize d only for the (test code = detection ofpro teins from COVNONPUIAG) SARS-CoV-2, not for any other viruses orpathogens. Ne gative results should be treated as presumptive andconfirmed wi th a molecular assay , if necessary for patientmanageme nt. Negative result s do not rule out COVID- 19 andshould not b e used as the sole basis for treatment orpat ient management deci sions, including infec tion controldecision s. Negative result s should be considered i n thecontext of a patient's recent exposure s, history and thepresence of clinical signs and symptoms consis tent withCOVID-19. T his test has not been FD A cleared or approved; th e test hasbeen authori kimberly by FDA under an Emerge ncy Use Authorization(E UA) for use by laborato mallory certified under the CLIA thatmeet the re quirements to perform mode rate, high or waivedcomple xity tests. This kortney t is authorized for use at thePoint of Car e (POC), i.e., in patien t care settingsoperati ng under a CLIA Certificat e of Waiver, Certifi arelis ofCompliance, o r Certificate of Accreditation. This test is only authori zed for the duration of thedeclaration that circumstances e xist justifying theauthorizatio n of emergency use o f in vitro diagnostic test sfor detection and/o r diagnosis of CO VID-19 under Tvoqppp11 4(b)(1) of the Act, 21 U.S .C. 360bbb-3(b)(1), unless theauthorizatio n is terminated or r evoked sooner. Comments to Family Practitioner: FOR RAPID AND IN-HOSE COVID TESTSpecimen Comment: DO NOT SEND OUTHCG [id number] 19:28:00 Test Item Value Reference Range Interpretation Comments HCG SERUM (test 4561 INTERPRETATI ON:VALUES BETWEEN code = HCG) 15-20 milliInte rnational units/mL NEED T O BERETESTED WITHIN 48 HOURS . All units for these ranges ar e in milliInternatio nalunits/mL0-1 WK AFTER CONCEP TION 0-50 1-2 WKS AFTER MIGUEL PTION 40-3002-3 WKS AFTER MIGUEL PTION 100-1,0003-4 WK S AFTER CONCEPTION 500- 6,0001-2 MONTHS AFTER CONCEPTIO N 5,000-200,0002- 3 MONTHS AFTER CONCEPTION 10,0 00-100,0002ND TRIMESTER 3,000 -50,0003RD TRIMESTER 1,000 -50,000 SPECIMENS WITH AN HCG LEVEL FROM 0-6 milliInternatio nalunits/mL SHOULD BE CONSI DERED NEGATIVE CBC W/AUTO [id number] 18:24:00 Test Item Value Reference Range Interpretation Comments WHITE BLOOD CELL (test code = WBC) 5.8 K/mm3 6.5-12.3 L RED BLOOD CELL (test code = RBC) 4.41 M/mm3 3.51-4.69 N HEMOGLOBIN (test code = HGB) 13.9 g/dL 10.1-13.8 H HEMATOCRIT (test code = HCT) 41.1 % 32.5-41.8 N MEAN CELL VOLUME (test code = MCV) 93.2 fL 84.6-96.6 N MEAN CELL HGB (test code = MCH) 31.5 pg 27.3-33.9 N MEAN CELL HGB CONCETRATION (test 33.8 gm/dL 32.0-34.2 N code = MCHC) RED CELL DISTRIBUTION WIDTH (test 11.9 % 12.2-16.3 L code = RDW) PLATELET COUNT (test code = PLT) 241 K/mm3 134-363 N MEAN PLATELET VOLUME (test code = 10.6 fL 9.2-12.7 N MPV) NEUTROPHIL % (test code = NT%) 65.4 % 57.9-77.3 N LYMPHOCYTE % (test code = LY%) 26.7 % 14.5-29.7 N MONOCYTE % (test code = MO%) 6.5 % 3.6-10.2 N EOSINOPHIL % (test code = EO%) 0.9 % 0.0-3.0 N BASOPHIL % (test code = BA%) 0.3 % 0.1-0.9 N NEUTROPHIL # (test code = NT#) 3.8 K/mm3 LYMPHOCYTE # (test code = LY#) 1.6 K/mm3 MONOCYTE # (test code = MO#) 0.4 K/mm3 EOSINOPHIL # (test code = EO#) 0.05 K/mm3 BASOPHIL # (test code = BA#) 0.0 K/mm3 RBC MORPHOLOGY REQUIRED (test code NORMAL NORMAL = RBCM) PLATELET MORPHOLOGY REQUIRED (test NORMAL NORMAL code = PLTMR) PROTHROMBIN [id number] 18:13:00 Test Item Value Reference Range Interpretation Comments PROTHROMBIN TIME PATIENT (test code 12.5 secs 10.1-12.3 H = PTP) THROMBOPLASTIN TIME [id number] 18:13:00 Test Item Value Reference Range Interpretation Comments THROMBOPLASTIN TIME PARTIAL (test 36.0 secs 22-38 N code = PTT) [id number] 11:36:00 Test Item Value Reference Range Interpretation Comments HEMORRHOIDS (test code = HEMORR) RUN DATE: 05/14/20 [facility] PAGE 1 RUN TIME: 1136 Specimen Inquiry RUN USER: INTERFACE PATIENT: ANA CRISTINA BOTELLO LOC: JANICE U #: [id number] AGE/SX: 29/F ROOM: RE05/13/20REG DR: Shawn Smart MD : [birth year] BED: DIS: STATUS: DEP SDC TLOC: SPEC #: [id number] RECD: 05/13/20 STATUS: DESTINEY KEMP #: [id number] ASPEN: 05/13/[address]: Shawn Smart MD ENTERED: 05/13/20 SP TYPE: HEMORRHOID OTHR DR: No Primary or Family PhysicianORDERED: SURG PATH LVL 3 CODES: [id number] - MUCOUS MEMBRANE HERNIA REPAIR [id number] - HEMORRHOIDAL PL Q47208 [id number] - HEMORRHOIDAL PL HEMORRHOIDS, NO [id number] - HEMORRHOIDAL PL THROMBUS, NOS COPIES TO: No Primary or Family Physician Shawn Smart MD [address] [place] [address] ICD CODES: 453.9 - 455.6 - PROCEDURES: SURG PATH LVL 3 (05/13/20) TISSUES: A. HEMORRHOIDAL PLEXUS - HEMORRHOIDS CPT CODES CPT CODE(S): 15034 , , , , , , FINAL DIAGNOSIS Anorectal mucosa, "hemorrhoids," herniorrhaphy: INTERNAL AND EXTERNAL HEMORRHOIDS FOCAL ORGANIZING THROMBUS GROSS DESCRIPTION Hemorrhoids. The specimen consists of two red-pink tissue fragments measuring 2.6 x 2 x 1.3 cm. The margin of resection is inked black. It is serially sectioned to reveal a hemorrhagic cut surface. Sections submitted as A1. The second pink tissue fragment measures 3.2 x 0.7 x 0.4 cm. Margin of resection is inked green. Section submitted as A2. /tc/pdb CONTINUED ON NEXT PAGE RUN DATE: 05/14/20 [facility] PAGE 2 RUN TIME: 1136 Specimen Inquiry RUN USER: INTERFACE SPEC #: [id number] PATIENT: GIRISHANA CRISTINA BEY SHAUNA #[id number] (Continued) MICROSCOPIC DESCRIPTION Hemorrhoids. The sections show fragments of anorectal mucosa with numerous dilated veins surrounded by fibrous stroma and a few areas of chronic inflammation. Part of the surface is covered by mature squamous cell epithelium and part of the glandular mucosa. There is no evidence of malignancy. Focal organizing thrombus. /bb --- Signed SIGNATURE ON FILE Santiago Dempsey 05/14/20 1136 END OF REPORT HCG SERUM [id number] 09:28:00 Test Item Value Reference Range Interpretation Comments HCG SERUM QUAL (test code = HCGQL) NEGATIVE NEGATIVE A Novel Coronavirus 2018 [id number] 07:31:00 Test Item Value Reference Range Interpretation Comments Novel Coronavirus Not Detected Not Detected Testing wa s performed 2018 Inhouse (test using the Aptima code = COVNONPUI) SARS-CoV-2 assay.This nucleic acid amplification t est was developed and itsperformance characteristics determined by [facility]. Nucleic acid amplification t ests include PCRand TMA. This test has not be en FDA cleared or appr avelina.This test has been a uthorized by FDA under an Emergency UseAuthorizatio n (EUA). This test is on ly authorized fort he duration of jimi e the declaration kermit t circumstancesex ist justifying the authorization o f the emergency use o fin vitro diagnostic test s for detection of SA RS-CoV-2 virusand/or phi gnosis of COVID-19 infect ion under loumzyx317(b)(1 ) of the Act, 21 U.S.C. 360bbb-3(b) (1) , unless theauthorizatio n is terminated or r evoked sooner.When phi gnostic testing is nega tive, the possibility of afalse negative result should be considered i n the contextof a pat ient's recent exposure s and the presence ofclin ical signs and sympt oms consistent with COVID-19. Anind ividual without symptom s of COVID-19 and wh o is notshedding HUGH S-CoV-2 virus would exp ect to have a negative (not detected) resul t in this assay.Performed At: [facility] [address] [id number] racquel Ku MD Ph:[phone] Is this a LINE draw? N- US PELVIS [id number] 10:08:00 Name: ANA CRISTINA LARA [facility] : 1990 Age/S: 28 / F [address] [place] [address] Unit #: [id number] Loc: [place] [address] Phys: Sujit Plummer MD Acct: [id number] Dis Date: Status: REG CLI PHONE #: [phone] Exam Date: 05/14/2019 0819 FAX #: [phone] Reason: R10 ABD PAIN EXAMS: CPT CODE: [id number] US PELVIS COMPLETE 28292 PROCEDURE: PELVIC ULTRASOUND INDICATION: R10 ABDPAIN 28-year-old female with complaint of pelvic pain. 2.5 weeks post section. COMPARISON: OB ultrasound of 01/31/2019 TECHNIQUE: Grayscale, color and Doppler transabdominal imaging of the pelvis was performed with standard technique. LIMITATIONS: None. FINDINGS: UTERUS: The uterus measures 1 2.4 x 6.5 x 9.1 cm. No uterine masses. Endometrium estimated 1 cm AP thickness with small volume of fluid in the endometrial cavity. RIGHT OVARY: The right ovary measures 3.3 x 2.5 x 1.5 cm. Normal morphology. Internal flow with arterial waveform obtained. LEFT OVARY: The left ovary measures 2.5 x 1.6x 2.2 cm. Normal morphology. Internal flow with arterial waveform obtained. BLADDER: The urinary bladder is partially contracted, otherwise unremarkable. Bilateral ureteral jets demonstrated. Comments:No adnexal mass. No free intraperitoneal fluid. No focal fluid collection. Survey of the abdominal incision was performed with high-frequency linear probe demonstrating no abdominal wall fluid collectio n. IMPRESSION: Normal pelvic ultrasound. No fluid collection or other acute abnormality demonstrated. If there is continued clinical concern, further imaging options include CT. SL: [id number] at 1008 Reported and signed by: Ever Garcia M.D. PAGE 1 Signed Report (CONTINUED) Name: ANA CRISTINA LARA [facility] : 1990 Age/S: 28 / F [address] [place] [address] Unit #: [id number] Loc: [place] [address] Phys: Sujit Plummer MD Acct: [id number] Dis Date: Status: REG CLI PHONE #: [phone] Exam Date: 05/14/2019818 FAX #: [phone] Reason: R10 ABD PAIN EXAMS: CPT CODE: [id number] US PELVIS CO MPLETE 70499 (Continued) CC: Sujit Plummer MD Technologist: Joana Slater RDMS(Asa)(BR) Trnscb Date/Time: 05/14/2019 (1008) [email or web address] Orig Print D/T: S: 05/14/2019 (1012) Probe: PAGE 2 Signed ReportSURGICAL [id number] 08:30:00 RUN DATE: 05/02/19 [facility] *LIVE* PAGE 1 RUN TIME: 0830 Specimen Inquiry RUN USER: INTERFACE --PATIENT: JEANIE LARAHimanshu MATTHEWSSHAUNA LOC: ZULEIMA U #: [id number] AGE/SX: 28/F ROOM: RE04/19/19REG DR:Zeny Fisher MD : [birth year] BED: DIS: STATUS: [facility] TLOC: SPEC #: [id number] RECD: 04/30/19 STATUS: DESTINEY KEMP #: [id number] ASPEN: 04/30/[address] [facility] [address]: Zeny Fisher MD ENTERED: 05/01/19 SPTYPE: SURG SPEC OTHR DR: Self Referred Sujit Plummer MDORDERED: GM LEVEL 4 CODES: [id number] - PLACENTA, NOS COPIES TO: Self Referred Zeny Fisher MD [address] [facility] [address] [place] [address] Sujit Plummer MD [address] [place] [address] PROCEDURES: GM LEVEL 4 (Incomplete) TISSUES: 1. PLACENTA, NOS - Placenta, 3rd trimester. FINAL DIAGNOSIS Placenta, 3rd trimester: Acute chorioamnionitis with ascending vasculitis of umbilical cord involving section from closest to the infant; umbilical cord measures 12 cm in length, clinical correlation is necessary to determine the total length of the umbilical cord, large placenta for gestational age representing approximately the 90th percentile. GROSS AND MICROSCOPIC GROSS EXAMINATION: Received in formalin and labeled placenta is a placenta that weighs 589 g without the attached umbilical cord and membranes. The placenta measures 17.5 x 16.5 x 2.5 cm. The umbilical cord inserts paracentrally and contains 3 vessels. The surface of the placenta is bluish sahu with blood vessels coursing over the surface away fromthe insertion of the umbilical cord. The maternal surface of the placenta is intact with a scant amount of hemorrhage. The placenta is bread loafed and the parenchyma is beefy red without substantial infarcts. The segment of umbilical cord measures 12 cm in length and 1.1 cm in diameter. The cord doescontain false knots but does not show increased twisting and does not show true knots. The membranes are thickened and cloudy. A CONTINUED ON NEXT PAGE RUN DATE: 05/02/19 [facility] *LIVE* PAGE2 RUN TIME: 0830 Specimen Inquiry RUN USER: INTERFACE SPEC #: [id number] PATIENT: ANA CRISTINA LARA #[id number] (Continued) GROSS AND MICROSCOPIC (Continued) succenturiate lobe is present that measures 2.5 cm. SECTION CODE: Umbilical cord (close to insertion into placenta)-A; mid cord-B; end-C; membranes-B; placenta (close to insertion of umbilical cord)-D; mid placenta-E; margin-F. The succenturiate lobe section is submitted as (C). MICROSCOPIC EXAMINATION: Sections of the umbilical cord reveal three vessels with some acute inflammation. The membranes also show some acute inflammation. The underlying maternal decidua shows a mixed inflammatory infiltrate. The umbilical cord does show acute inflammation from the section from closest to the infant. This represents ascending vasculitis. The fetalsurface of the placenta shows acute inflammation involving the fibrinoid layer extending into the chorion. Acute vasculitis is seen. Maturation is appropriate for gestational age. The underlying maternal decidua contains a mixed inflammatory infiltrate. The umbilical cord measures 12 cm in length. Clin ical correlation is necessary to determine the total length of the umbilical cord. The placenta is large for gestational age representing approximately the 90th percentile. * Note: Path Dx does not coincide with clinical impression, clinical correlation is necessary. POST-OP DIAGNOSIS Repeat Cesareansection, short umbilical cord < 32 cm., delivered PRE-OP DIAGNOSIS Repeat section, shortumbilical cord < 32 cm. Signed SIGNATURE ON FILE Angela Dewitt MD 05/02/19 0830 END OF REPORT RAPID PLASMA [id number] 10:42:00 Test Item Value Reference Range Interpretation Comments RAPID PLASMA REAGIN (test code = NONREACTIVE NONREACTIVE RPR) AG HEPATITIS B [id number] 10:42:00 Test Item Value Reference Range Interpretation Comments AG HEPATITIS B SURFACE NON REACTIVE INDEX NonReactive (test code = HBSAG) AB HIV 1 10:42:00 Test Item Value Reference Range Interpretation Comments AB HIV 1 2 (test code = NONREACTIVE INDEX NONREACTIVE [id number]) CBC W/AUTO [id number] 05:46:00 Test Item Value Reference Range Interpretation Comments WHITE BLOOD CELL (test code = 14.94 x10 3/uL 4.5-11.0 H WBC) RED BLOOD CELL (test code = 3.21 x10 6/uL 3.54-5.02 L RBC) HEMOGLOBIN (test code = HGB) 9.9 g/dL 11.0-15.0 L HEMATOCRIT (test code = HCT) 30.1 % 33.0-45.0 L MEAN CELL VOLUME (test code = 93.8 fL 81.0-99.0 N MCV) MEAN CELL HGB (test code = 30.8 pg 27.0-33.0 N MCH) MEAN CELL HGB CONCETRATION 32.9 g/dL 33.0-37.0 L (test code = MCHC) RED CELL DISTRIBUTION WIDTH CV 14.0 % 11.5-14.5 N (test code = RDW) RED CELL DISTRIBUTION WIDTH SD 47.8 fL 37.0-54.0 N (test code = RDW-SD) PLATELET COUNT (test code = 159 x10 3/uL 150-400 N PLT) MEAN PLATELET VOLUME (test 11.0 fL 7.0-9.0 H code = MPV) NEUTROPHIL % (test code = NT%) 85.8 % 56.0-77.0 H IMMATURE GRANULOCYTE % (test 0.7 % 0.0-2.0 N code = IG%) LYMPHOCYTE % (test code = LY%) 8.6 % 14.0-32.0 L MONOCYTE % (test code = MO%) 4.7 % 4.8-9.0 L EOSINOPHIL % (test code = EO%) 0.0 % 0.3-3.7 L BASOPHIL % (test code = BA%) 0.2 % 0.0-2.0 N NUCLEATED RBC % (test code = 0.0 % 0-0 N NRBC%) NEUTROPHIL # (test code = NT#) 12.81 x10 3/uL 2.0-7.6 H IMMATURE GRANULOCYTE # (test 0.11 x10 3/uL 0.00-0.03 H code = IG#) LYMPHOCYTE # (test code = LY#) 1.29 x10 3/uL 1.0-3.8 N MONOCYTE # (test code = MO#) 0.70 x10 3/uL 0.1-0.8 N EOSINOPHIL # (test code = EO#) 0.00 x10 3/uL 0.0-0.2 N BASOPHIL # (test code = BA#) 0.03 x10 3/uL 0.0-0.2 N NUCLEATED RBC # (test code = 0.00 x10 3/uL 0.0-0.1 N NRBC#) MANUAL DIFF REQUIRED (test NO code = MDIFF) CORD VENOUS BLOOD [id number] 20:42:00 Test Item Value Reference Range Interpretation Comments CORD VENOUS PH (test code = PHCV) 7.33 7.25-7.45 N CORD VENOUS PCO2 (test code = 41 mmHg 27-49 N PCO2CV) CORD VENOUS PO2 (test code = 19 mmHg 17-41 N PO2CV) CORD VENOUS HCO3 (test code = 22.1 MMOL/L 12-28 N HCO3CV) CORD VENOUS BASE EXCESS (test -4.0 mmol/L -8.0-0.00 N code = BEXCV) CORD VENOUS 02 SAT (test code = 28 % O2SCV) CORD ARTERIAL BLOOD [id number] 20:35:00 Test Item Value Reference Range Interpretation Comments CORD BLOOD PH (test code = PH/C) 7.19 7.18-7.38 N CORD BLOOD PCO2 (test code = 58 mmHg 32-66 N PCO2/C) CORD BLOOD PO2 (test code = 8 mmHg 6-30 N PO2/C) CORD BLOOD HCO3 (test code = 22 mmol/L 17-27 N HCO3/C) BASE EXCESS CORD (test code = -6.0 mmol/L -8.0-0.0 N DOROTHEA/C) RAPID PLASMA [id number] 20:11:00 Test Item Value Reference Range Interpretation Comments RAPID PLASMA REAGIN (test code = RPR) NONREACTIVE AG HEPATITIS B [id number] 20:11:00 Test Item Value Reference Range Interpretation Comments AG HEPATITIS B SURFACE NON REACTIVE INDEX NonReactive (test code = HBSAG) AB HIV 1 20:11:00 Test Item Value Reference Range Interpretation Comments AB HIV 1 2 (test code = NONREACTIVE INDEX NONREACTIVE [id number]) CBC W/AUTO [id number] 18:23:00 Test Item Value Reference Range Interpretation Comments WHITE BLOOD CELL (test code = 8.91 x10 3/uL 4.5-11.0 N WBC) RED BLOOD CELL (test code = 3.57 x10 6/uL 3.54-5.02 N RBC) HEMOGLOBIN (test code = HGB) 11.0 g/dL 11.0-15.0 N HEMATOCRIT (test code = HCT) 33.5 % 33.0-45.0 N MEAN CELL VOLUME (test code = 93.8 fL 81.0-99.0 N MCV) MEAN CELL HGB (test code = MCH) 30.8 pg 27.0-33.0 N MEAN CELL HGB CONCETRATION 32.8 g/dL 33.0-37.0 L (test code = MCHC) RED CELL DISTRIBUTION WIDTH CV 14.2 % 11.5-14.5 N (test code = RDW) RED CELL DISTRIBUTION WIDTH SD 48.4 fL 37.0-54.0 N (test code = RDW-SD) PLATELET COUNT (test code = 164 x10 3/uL 150-400 N PLT) MEAN PLATELET VOLUME (test code 10.9 fL 7.0-9.0 H = MPV) NEUTROPHIL % (test code = NT%) 75.6 % 56.0-77.0 N IMMATURE GRANULOCYTE % (test 0.8 % 0.0-2.0 N code = IG%) LYMPHOCYTE % (test code = LY%) 16.6 % 14.0-32.0 N MONOCYTE % (test code = MO%) 6.5 % 4.8-9.0 N EOSINOPHIL % (test code = EO%) 0.3 % 0.3-3.7 N BASOPHIL % (test code = BA%) 0.2 % 0.0-2.0 N NUCLEATED RBC % (test code = 0.0 % 0-0 N NRBC%) NEUTROPHIL # (test code = NT#) 6.73 x10 3/uL 2.0-7.6 N IMMATURE GRANULOCYTE # (test 0.07 x10 3/uL 0.00-0.03 H code = IG#) LYMPHOCYTE # (test code = LY#) 1.48 x10 3/uL 1.0-3.8 N MONOCYTE # (test code = MO#) 0.58 x10 3/uL 0.1-0.8 N EOSINOPHIL # (test code = EO#) 0.03 x10 3/uL 0.0-0.2 N BASOPHIL # (test code = BA#) 0.02 x10 3/uL 0.0-0.2 N NUCLEATED RBC # (test code = 0.00 x10 3/uL 0.0-0.1 N NRBC#) MANUAL DIFF REQUIRED (test code NO = MDIFF) URINALYSIS [id number] 21:20:00 Test Item Value Reference Range Interpretation Comments UA COLOR (test code = COLU) STRAW YEL/STRAW UA APPEARANCE (test code = CLEAR CLEAR APPU) UA GLUCOSE DIPSTICK (test NEGATIVE NEGATIVE code = DGLUU) UA BILIRUBIN DIPSTICK (test NEGATIVE NEGATIVE code = BILU) UA KETONE DIPSTICK (test NEGATIVE NEGATIVE code = KETU) UA SPECIFIC GRAVITY (test 1.005 1.005-1.030 N code = SGU) UA BLOOD DIPSTICK (test NEGATIVE NEGATIVE code = GOLDEN) UA PH DIPSTICK (test code = 7.0 5.0-7.0 N PRITI) UA PROTEIN DIPSTICK (test NEGATIVE NEGATIVE code = PROU) UA UROBILINIOGEN DIPSTICK 0.2 mg/dL 0.2-1.0 (test code = URO) UA NITRITE DIPSTICK (test NEGATIVE NEGATIVE code = KOREY) UA LEUKOCYTE ESTERASE NEGATIVE NEGATIVE DIPSTICK (test code = LEUU) UA RBC (test code = RBCU) 0-3 RBC/HPF 0-3 UA WBC NO REFLEX (test code NONE SEEN WBC/HPF 0-3 = WBCUCL) UA BACTERIA (test code = NONE SEEN /HPF NONE SEEN BACU) UA SQUAMOUS CELLS (test 0-5 /HPF NONE SEEN code = SQU) UA MUCUS (test code = MUCU) TRACE /LPF NONE SEEN - US ABDOMEN [id number] 08:51:00 Name: ANA CRISTINA LARA [facility] : 1990 Age/S: 28 / F [address] [place] [address] Unit #: [id number] Loc: [place] [address] Phys: Sujit Plummer MD Acct: [id number] Dis Date: Status: REG CLI PHONE #: [phone] Exam Date: 02/21/2019 0841 FAX #: [phone] Reason: R10.0 RUQ PAIN EXAMS: CPT CODE: [id number] US ABDOMEN COMPLETE 17055 ABDOMEN ULTRASOUND COMPLETE 02/21/2019: COMPARISON: None CLINICAL HISTORY: R10.0 RUQ PAIN FINDINGS: The liver has a normal sonographic appearance.No focal lesions are seen. The liver measured approximately 18 cm in length. The gallbladder contains no calculi and the gallbladder wall is normal in thickness. The common bile duct measures 3.7 mm indiameter. Pancreas was suboptimally seen on this study. The kidneys demonstrate a normal appearance and are of normal size. No hydronephrosis, mass, or cyst is seen The right kidney measures 12.5cm. The left kidney measures 13.4 cm. The spleen is unremarkable. It measures 12.2 cm The visualized portions of the abdominal aorta and IVC are normal in caliber. No free fluid noted in the abdomen. IMPRESSION: Negative abdominal sonogram. Please see above for details and limitations. at 0851 Reported and signed by: Pedro Meyers M.D. CC: Sujit Plummer MD Technologist: Joana Slater RDMS(Asa)(BR) Trnscb Date/Time: 02/21/2019 (0867) [email or web address] Orig Print D/T: S: 02/21/2019 (6028) Probe: PAGE 1 Signed Report- US LTD 2019-01-31 16:11:00 Name: ANA CRISTINA LARA [facility] : 1990 Age/S: 28 / F [address] [place] [address] Blvd Unit #: [id number] Loc: [place] [address] Phys: Myla Mendoza MD Acct: [id number] Dis Date: Status: REG ER PHONE #: [phone] Exam Date: 01/31/2019 1542 FAX #: [phone] Reason: VAGINAL BLEEDING EXAMS: CPT CODE: [id number] [place] LTD [address]5660 EXAM: [facility] LTD: 01/31/2019, 1437 hours HISTORY: Vaginal bleeding. Spotting. Lower abdominal pain. COMPARISON: None. TECHNIQUE: Sonographic evaluation is performed of the pelvis via transabdominal approach using grayscale, color flow and Doppler imaging as appropriate. FINDINGS: The examination shows a single fetus in transverse, head maternal right presentation. Normal cardiac activity is noted at 147 per second. The amount of amniotic fluid is normal. ADRIANA is 17.64 cm, with largest pocket measuring 6.22 cm. The placenta is anterior, grade 0. There is no evidence of previa. The following measurements are obtained: 1. BPD - 6.54 cm : Avg = 26 weeks 3 days 2. HEAD CIRCUMFERENCE - 25.23 cm : Avg = 27 weeks 3 days 3. ABDOMINAL CIRCUMFERENCE - 22.50 cm : Avg = 26 weeks 6 days 4. FEMUR LENGTH - 4.74 cm: Avg = 25 weeks 6 days 5. EFW: (AC.BPD, FL.HC)- Hadlock - 950.80 g +/- 142.62 g EFW (Hadlock)-GP 69.2 % FL/AC: 21.07 (20.0 0--24.00) FL/BPD: 72.45 (71.00--87.00) FL/HC: 18.79 (18.60--20.40) HC/AC: 1.12 (1.05--1.22) S/D ratio: 3.6 The measurements correspond with an sonographic EGA of 26 weeks 5 days and an sonographic IRASEMA of 05/04/2019 plus or minus one standard deviation. The LMP estimated gestational age is 25 weeks 6 days . IRASEMA by LMP is 05/10/2019. PAGE 1 Signed Report (CONTINUED) Name: ANA CRISTINA LARA [facility] : 1990 Age/S: 28 / F [address] [place] [address] Unit #: [id number] Loc: [place] [address] Phys: Myla Mendoza MD Acct: [id number] Dis Date: Status: REG ER PHONE #: [phone] Exam Date: 01/31/2019 1542 FAX #: [phone] Reason: VAGINAL BLEEDING EXAMS: CPT CODE: [id number] US LTD 63792 (Continued) There is difference of 6 days between LMP estimated gestational age andsonographic gestational age. Limited Gross survey, within the limitation of gestational age, is unremarkable. Cervical length is 5.63 cm. IMPRESSION: Single live fetus in transverse presentation.2. Sonographic EGA of 26 weeks 5 days and an sonographic IRASEMA of 05/04/2019 +/- one standard deviation. SL:EVELYN at 1611 Reported and signed by: Daljit Mobley M.D. CC: Myla Mendoza MD; Sujit Plummer MD Technologist: Ladan Bush RDMS(OB)(BR) Trnscb Date/Time: 01/31/2019 (1611) [email or web address] Orig Print D/T: S: 01/31/2019 (1610) Probe: PAGE 2 Signed ReportURINALYSIS COMPLETE 2019-01-31 14:18:00 Test Item Value Reference Range Interpretation Comments UA COLOR (test code = COLU) YELLOW YEL/STRAW UA APPEARANCE (test code = APPU) SL CLOUDY CLEAR UA GLUCOSE DIPSTICK (test code = 1+ NEGATIVE A DGLUU) UA BILIRUBIN DIPSTICK (test code NEGATIVE NEGATIVE = BILU) UA KETONE DIPSTICK (test code = NEGATIVE NEGATIVE KETU) UA SPECIFIC GRAVITY (test code = 1.018 1.005-1.030 N SGU) UA BLOOD DIPSTICK (test code = NEGATIVE NEGATIVE GOLDEN) UA PH DIPSTICK (test code = PRITI) 9.0 5.0-7.0 H UA PROTEIN DIPSTICK (test code = NEGATIVE NEGATIVE PROU) UA UROBILINIOGEN DIPSTICK (test 0.2 mg/dL 0.2-1.0 code = URO) UA NITRITE DIPSTICK (test code = NEGATIVE NEGATIVE KOREY) UA LEUKOCYTE ESTERASE DIPSTICK NEGATIVE NEGATIVE (test code = LEUU) UA WBC (test code = WBCU) 0-3 WBC/HPF 0-3 UA RBC (test code = RBCU) 0-3 RBC/HPF 0-3 UA BACTERIA (test code = BACU) TRACE /HPF NONE SEEN UA SQUAMOUS CELLS (test code = 0-5 /HPF NONE SEEN SQU) UA MUCUS (test code = MUCU) TRACE /LPF NONE SEEN CBC W/AUTO [id number] 13:46:00 Test Item Value Reference Range Interpretation Comments WHITE BLOOD CELL (test code = 7.86 x10 3/uL 4.5-11.0 N WBC) RED BLOOD CELL (test code = 3.24 x10 6/uL 3.54-5.02 L RBC) HEMOGLOBIN (test code = HGB) 10.4 g/dL 11.0-15.0 L HEMATOCRIT (test code = HCT) 31.0 % 33.0-45.0 L MEAN CELL VOLUME (test code = 95.7 fL 81.0-99.0 N MCV) MEAN CELL HGB (test code = MCH) 32.1 pg 27.0-33.0 N MEAN CELL HGB CONCETRATION 33.5 g/dL 33.0-37.0 N (test code = MCHC) RED CELL DISTRIBUTION WIDTH CV 12.4 % 11.5-14.5 N (test code = RDW) RED CELL DISTRIBUTION WIDTH SD 43.4 fL 37.0-54.0 N (test code = RDW-SD) PLATELET COUNT (test code = 190 x10 3/uL 150-400 N PLT) MEAN PLATELET VOLUME (test code 10.3 fL 7.0-9.0 H = MPV) NEUTROPHIL % (test code = NT%) 74.9 % 56.0-77.0 N IMMATURE GRANULOCYTE % (test 0.4 % 0.0-2.0 N code = IG%) LYMPHOCYTE % (test code = LY%) 17.2 % 14.0-32.0 N MONOCYTE % (test code = MO%) 6.9 % 4.8-9.0 N EOSINOPHIL % (test code = EO%) 0.5 % 0.3-3.7 N BASOPHIL % (test code = BA%) 0.1 % 0.0-2.0 N NUCLEATED RBC % (test code = 0.0 % 0-0 N NRBC%) NEUTROPHIL # (test code = NT#) 5.89 x10 3/uL 2.0-7.6 N IMMATURE GRANULOCYTE # (test 0.03 x10 3/uL 0.00-0.03 N code = IG#) LYMPHOCYTE # (test code = LY#) 1.35 x10 3/uL 1.0-3.8 N MONOCYTE # (test code = MO#) 0.54 x10 3/uL 0.1-0.8 N EOSINOPHIL # (test code = EO#) 0.04 x10 3/uL 0.0-0.2 N BASOPHIL # (test code = BA#) 0.01 x10 3/uL 0.0-0.2 N NUCLEATED RBC # (test code = 0.00 x10 3/uL 0.0-0.1 N NRBC#) MANUAL DIFF REQUIRED (test code NO = MDIFF)
[2022-06-24 04:36] LABS: Absolute Lymphocytes (CBC) 2.3 K/uL (0.7-4.9); Hematocrit 39.5 % (36.0-45.0); Lymphocytes % 41.8 % (15.3-44.8); MPV 7.7 fL (7.6-11.3)
[2022-06-24 04:39] LABS: Protime INR 0.96
[2022-06-24 04:49] LABS: Potassium 4.3 mmol/L (3.5-5.1); Troponin High Sensitivity 10.5 pg/mL (<58.9)
--- NOTE | 2022-06-24 08:02 | EKG ---
Test Date: 2022-06-24 Test Time: 04:17:51 Assistant Education Director: HOLLIE MEASUREMENT RESULTS: Intervals: Rate: 59 NM: 144 QRSD: 88 QT: 406 QTc: 401 Anita: P: 61 NM: 144 QRS: 68 T: 103 INTERPRETIVE STATEMENTS: Sinus bradycardia with sinus arrhythmia Nonspecific ST abnormality Abnormal ECG No previous ECG available for comparison Electronically Signed On 06-24-22 08:01:32 UNMANNED EQUIPMENT OPERATOR by Sudhir Ac
--- NOTE | 2022-06-24 08:39 | RAD REPORT ---
EXAM DESCRIPTION: MRI - Brain Wo Cont - 06/24/2022 8:07 am CLINICAL HISTORY: Neuro deficit, acute, stroke suspected, left-sided weakness and numbness COMPARISON: No comparisons TECHNIQUE: Sagittal T1-weighted images were obtained along with axial PD, heavily T2-weighted and T2 -FLAIR images. Axial DWI and ADC mapping sequences were also obtained along with coronal heavily T2-w eighted images. FINDINGS: No intracranial hemorrhage, mass or acute infarction. There is no edema or shift of midlin e structures. No extra-axial fluid collections. Anderson-matter/white matter junction is preserved. Signa l voids are seen as a normal finding in the major intracranial vessels. No focal or diffuse white mat ter signal abnormality. Ventricles are normal. No sella or supra sella abnormality. No tonsillar ectopia. No globe or orbital content suspicious fin ding. Mastoid air cells and paranasal sinuses are clear. IMPRESSION: Negative non-contrast MRI of the Brain.
--- NOTE | 2022-06-24 09:27 | ER ---
Nurse's Notes [facility] Name: Raza Botello Age: 31 yrs Sex: Female : 1990 Arrival Date: 06/24/2022 Time: 03:49 Bed 15 Private MD: Chito Simons Diagnosis: Paresthesia of skin Presentation: 06/24 03:51 Chief complaint: Patient states: Around 0100 I was walking around the house and tried jb4 to fire support specialist a rodrigez with my left hand and noticed I couldn't. I then felt my left arm go numb and start to tingle. Shortly after it went to the left side of my face. I tried to wait it out. No I can use my arm again and the sensation is almost back to normal but still have some numbness and tingling in the left side of my face and left arm. I am also 4 week post . 03:51 Coronavirus screen: At this time, the client does not indicate any symptoms associated jb4 with coronavirus-19. Ebola Screen: No symptoms or risks identified at this time. Initial Sepsis Screen: Does the patient meet any 2 criteria? No. Patient's initial sepsis screen is negative. Does the patient have a suspected source of infection? No. Patient's initial sepsis screen is negative. Risk Assessment: Do you want to hurt yourself or someone else? Patient reports no desire to harm self or others. Onset of symptoms was June 24, 2022 at 01:00. Transition of care: patient was not received from another setting of care. 03:51 Method Of Arrival: Ambulatory jb4 03:51 Acuity: MAUREEN 2 jb4 Historical: - Allergies: 03:51 CEPHALOSPORINS; jb4 03:51 Darvocet-N 100; jb4 - Home Meds: 03:51 Omeprazole Oral [Active]; bupropion HCl Oral [Active]; Vitamin Oral [Active]; jb4 - PMHx: 03:51 gastritis; GERD; Hernia; scoliosis; UTI; jb4 - Immunization history:: Adult Immunizations up to date. - Social history:: Smoking status: Patient denies any tobacco usage or history of. Screenin:25 [facility] ED Fall Risk Assessment (Adult) History of falling in the last 3 months, jb4 including since admission No falls in past 3 months (0 pts) Confusion or Disorientation No (0 pts) Intoxicated or Sedated No (0 pts) Impaired Gait No (0 pts) Mobility Assist Device Used No (0 pt) Altered Elimination No (0 pt) Score/Fall Risk Level 0 - 2 = Low Risk Oriented to surroundings, Maintained a safe environment. Abuse screen: Denies threats or abuse. Nutritional screening: No deficits noted. Tuberculosis screening: No symptoms or risk factors identified. Fall Risk No fall in past 12 months (0 pts). IV access (20 points). Ambulatory Aid- None/Bed Rest/Nurse Assist (0 pts). Gait- Normal/Bed Rest/Wheelchair (0 pts) Total [place] Fall Scale indicates No Risk (0-24 pts). 08:00 Humpty Dumpty Scale Fall Assessment Tool (age< 18yrs) Age 13 years and above (1 pt) ko1 Gender Female (1 pt) Diagnosis Neurological diagnosis (4 pts) Cognitive Impairments Oriented to own ability (1 pt) Environmental Factors Outpatient area (1 pt) Response to Surgery/Sedation/Anesthesia Medication Usage Other medications/ None (1 pt) Fall Risk Score/ Level Low Fall Risk: </= 11 points Oriented to surroundings, Maintained a safe environment: Age specific bed with railing, Bed in low position\T\ wheels locked, Assess need for siderail use, Locks on, Rm \T\ paths clutter \T\ obstacle free, Proper lighting, Call light, personal item w/in reach, Alarms as needed, Educated pt \T\ family on fall prevention, incl. call for assistance when getting out of bed, Provided non-skid footwear. Assessment: 04:25 VAN Scoring: Arm Drift: Patients demonstrates NO arm weakness. Patient is VAN Negative. jb4 The patient has not been NPO before screening. The patient is alert, and able to follow commands. The patient does not exhibit slurred or garbled speech. The patient is not exhibiting difficulty speaking. The patient does not exhibit difficulty understanding words. The patient is able to swallow own secretions with no drooling or need for suction. Patient tolerated one teaspoon of water. No drooling, immediate coughing, gurgling, or clearing of the throat was noted. The patient tolerated 90mL of water. No drooling, immediate coughing, gurgling, or clearing of the throat was noted. The patient passed the bedside swallow screening. Oral medications may be given as ordered. Contact Physician for further diet orders. Provider notified of bedside swallow screening results: Chito Simons MD. 04:25 General: Appears in no apparent distress. comfortable, Behavior is calm, cooperative, jb4 appropriate for age. Pain: Denies pain. Neuro: Level of Consciousness is awake, alert, obeys commands, Oriented to person, place, time, situation, Gold Marker are equal bilaterally Moves all extremities. Full function Gait is steady, Speech is normal, Facial symmetry appears normal, Pupils are PERRLA, Tingling in left side of head and left arm Numbness in left side of head and left arm. Cardiovascular: Patient's skin is warm and dry. Respiratory: Airway is patent Respiratory effort is even, unlabored, Respiratory pattern is regular, symmetrical. GI: No signs and/or symptoms were reported involving the gastrointestinal system. : No signs and/or symptoms were reported regarding the genitourinary system. EENT: No signs and/or symptoms were reported regarding the EENT system. Derm: Skin is intact, Skin is pink, warm \T\ dry. Musculoskeletal: Circulation, motion, and sensation intact. Range of motion: intact in all extremities. 05:04 Reassessment: Patient appears in no apparent distress at this time. Patient and/or jb4 family updated on plan of care and expected duration. Pain level reassessed. Patient is alert, oriented x 3, equal unlabored respirations, skin warm/dry/pink. 06:00 Reassessment: Patient appears in no apparent distress at this time. Patient and/or jb4 family updated on plan of care and expected duration. Pain level reassessed. Patient is alert, oriented x 3, equal unlabored respirations, skin warm/dry/pink. 07:15 VAN Scoring: Arm Drift: Patients demonstrates NO arm weakness. Patient is VAN Negative. ko1 Visual Disturbance: No visual disturbance noted. Aphasia: No aphasia noted. Neglect: No neglect noted. Reassessment: No changes from previously documented assessment. Vital Signs: 03:51 BP 120 / 84; Pulse 59; Resp 16; Temp 98.2(TE); Pulse Ox 100% on R/A; Weight 73.94 kg jb4 (R); Height 5 ft. 4 in. (162.56 cm); Pain 0/10; 04:45 BP 108 / 77; Pulse 60; Resp 14; Pulse Ox 97% on R/A; jb4 06:15 BP 120 / 75; Pulse 61; Resp 14; Pulse Ox 97% on R/A; jb4 07:13 BP 115 / 87; Pulse 72; Pulse Ox 98% ; ko1 08:30 BP 108 / 92; Pulse 68; Pulse Ox 99% on R/A; ko1 09:09 BP 109 / 77; Pulse 70; Pulse Ox 100% ; ko1 03:51 Body Mass Index 27.98 (73.94 kg, 162.56 cm) jb4 NIH Stroke Scale Scores: 04:25 NIHSS Score: 1 jb4 04:29 NIHSS Score: 1 kdr 07:15 NIHSS Score: 1 ko1 ED Course: 03:49 Patient arrived in ED. es 03:50 Chito Simons MD is Private Physician. es 03:51 Arm band placed on right wrist. jb4 03:54 Rock Yao MD is Attending Physician. kdr 04:15 Inserted saline lock: 18 gauge in right antecubital area, using aseptic technique. jb4 Blood collected. 04:15 Initial lab(s) drawn, by me, sent to lab. jb4 04:17 EKG done, by ED staff, reviewed by Rock Yao MD. jb4 04:18 CT Stroke Brain w/o Contrast In Process Unspecified. EDMS 04:25 Patient has correct armband on for positive identification. Fall risk band placed. jb4 Placed in gown. Bed in low position. Call light in reach. Side rails up X 1. Client placed on continuous cardiac and pulse oximetry monitoring. NIBP monitoring applied. monitor technician on. 04:33 Triage completed. jb4 04:37 Stroke CXR 1 View In Process Unspecified. EDMS 04:38 Noe Sanabria, RN is Primary Nurse. jb4 07:45 Shira Sherwood, RN is Primary Nurse. ko1 07:46 Patient moved to MRI via wheelchair. ko1 07:47 Attending Physician role handed off by Rock Yao MD sp3 07:47 Vance Narayanan MD is Attending Physician. sp3 08:01 MRI - Brain Wo Cont In Process Unspecified. EDMS 08:09 Patient moved back from MRI. ko1 09:33 No provider procedures requiring assistance completed. IV discontinued, intact, ko1 bleeding controlled, No redness/swelling at site. Pressure dressing applied. Administered Medications: No medications were administered Medication: 04:25 VIS not applicable for this client. jb4 Outcome: 09:26 Discharge ordered by MD. [email or web address] 09:33 Discharged to home ambulatory, with family. ko1 09:33 Condition: stable 09:33 Discharge instructions given to patient, family, Instructed on discharge instructions, follow up and referral plans. Demonstrated understanding of instructions, follow-up care. 09:47 Patient left the ED. ko1 NIH Stroke Scale - NIH Stroke Score Date: 06/24/2022 Time: 04:25 Total Score = 1 1a. Level of Consciousness (LOC) - 0(Alert) 1b. Level of Consciousness (LOC) (Month \T\ Age) - 0(Both) 1c. LOC Commands (Open \T\ Closes Eyes/Visual Lead) - 0(Both) 2. Best Gaze (Lateral Gaze Paresis) - 0(Normal) 3. Visual Field Loss - 0(No visual loss) 4. Facial Palsy - 0(Normal) 5a. Left Arm: Motor (10-second hold) - 0(No drift) 5b. Right Arm: Motor (10-second hold) - 0(No drift) 6a. Left Leg: Motor (5-second hold - always test supine) - 0(No drift) 6b. Right Leg: Motor (5-second hold - always test supine) - 0(No drift) 7. Limb Ataxia (finger/nose \T\ heel/garduno - test with eyes open) - 0(Absent) 8. Sensory Loss (pinprick arms/legs/face) - 1(Mild to moderate loss) 9. Best Language: Aphasia (description/naming/reading) - 0(No aphasia) 10. Dysarthria (speech clarity - read or repeat words) - 0(Normal) 11. Extinction and Inattention (visual/tactile/auditory/spatial/personal) - 0(No abnormality) Initials: jb4 NIH Stroke Scale - NIH Stroke Score Date: 06/24/2022 Time: 04:29 Total Score = 1 1a. Level of Consciousness (LOC) - 0(Alert) 1b. Level of Consciousness (LOC) (Month \T\ Age) - 0(Both) 1c. LOC Commands (Open \T\ Closes Eyes/Visual Lead) - 0(Both) 2. Best Gaze (Lateral Gaze Paresis) - 0(Normal) 3. Visual Field Loss - 0(No visual loss) 4. Facial Palsy - 0(Normal) 5a. Left Arm: Motor (10-second hold) - 0(No drift) 5b. Right Arm: Motor (10-second hold) - 0(No drift) 6a. Left Leg: Motor (5-second hold - always test supine) - 0(No drift) 6b. Right Leg: Motor (5-second hold - always test supine) - 0(No drift) 7. Limb Ataxia (finger/nose \T\ heel/garduno - test with eyes open) - 0(Absent) 8. Sensory Loss (pinprick arms/legs/face) - 1(Mild to moderate loss) 9. Best Language: Aphasia (description/naming/reading) - 0(No aphasia) 10. Dysarthria (speech clarity - read or repeat words) - 0(Normal) 11. Extinction and Inattention (visual/tactile/auditory/spatial/personal) - 0(No abnormality) Initials: kdr NIH Stroke Scale - NIH Stroke Score Date: 06/24/2022 Time: 07:15 Total Score = 1 1a. Level of Consciousness (LOC) - 0(Alert) 1b. Level of Consciousness (LOC) (Month \T\ Age) - 0(Both) 1c. LOC Commands (Open \T\ Closes Eyes/Visual Lead) - 0(Both) 2. Best Gaze (Lateral Gaze Paresis) - 0(Normal) 3. Visual Field Loss - 0(No visual loss) 4. Facial Palsy - 0(Normal) 5a. Left Arm: Motor (10-second hold) - 0(No drift) 5b. Right Arm: Motor (10-second hold) - 0(No drift) 6a. Left Leg: Motor (5-second hold - always test supine) - 0(No drift) 6b. Right Leg: Motor (5-second hold - always test supine) - 0(No drift) 7. Limb Ataxia (finger/nose \T\ heel/garduno - test with eyes open) - 0(Absent) 8. Sensory Loss (pinprick arms/legs/face) - 1(Mild to moderate loss) 9. Best Language: Aphasia (description/naming/reading) - 0(No aphasia) 10. Dysarthria (speech clarity - read or repeat words) - 0(Normal) 11. Extinction and Inattention (visual/tactile/auditory/spatial/personal) - 0(No abnormality) Initials: ko1 Signatures: Dispatcher [employer] Rock Griffith MD MD kdr Bonita Gutierrez James, RN RN jb4 Vance Narayanan MD MD sp3 Shira Sherwood RN RN ko1 Corrections: (The following items were deleted from the chart) 06:35 06:15 BP 120 / 75; Pulse 61bpm; Resp 97bpm; Pulse Ox 14% RA; jb4 jb4 07:46 07:46 Patient moved to MRI ko1 ko1
--- NOTE | 2022-06-24 09:27 | EDPHYS ---
Physician Documentation [facility] Name: Raza Botello Age: 31 yrs Sex: Female : 1990 Arrival Date: 06/24/2022 Time: 03:49 Bed 15 Private MD: Chito Simons ED Physician Vance Narayanan HPI: 06/24 04:29 This 31 yrs old Female presents to ER via Unassigned with complaints of Numbness Of kdr Face, Numbness Of Arm. 04:29 Patient states that about 1 AM she was working in the house and noted that her left arm kdr was numb and tingling and that she was having generalized strength issues. She states that she laid her arm down and then had difficulty picking it back up again though she was in fact able to do so. In addition of that there is generalized paresthesia to the left upper extremity. After period of time perhaps an hour, the strength seemed to return however she continued with paresthesias though was those were diminished as well. About the time that her symptoms in her left arm were diminishing, she began to feel paresthesia to her left face. Currently her face and arm still have some residual paresthesia however the strength is symmetric in upper extremities and face. This is not happened to her before. She has not a smoker nor does she use control. She is about 4 weeks . Onset: The symptoms/episode began/occurred suddenly, just prior to arrival, this morning. Severity of symptoms: At their worst the symptoms were mild in the emergency department the symptoms are unchanged. The patient has not experienced similar symptoms in the past. The patient has not recently seen a physician. Historical: - Allergies: 03:51 CEPHALOSPORINS; jb4 03:51 Darvocet-N 100; jb4 - Home Meds: 03:51 Omeprazole Oral [Active]; bupropion HCl Oral [Active]; Vitamin Oral [Active]; jb4 - PMHx: 03:51 gastritis; GERD; Hernia; scoliosis; UTI; jb4 - Immunization history:: Adult Immunizations up to date. - Social history:: Smoking status: Patient denies any tobacco usage or history of. ROS: 04:29 Constitutional: Negative for fever, chills, and weight loss, Eyes: Negative for injury, kdr pain, redness, and discharge, ENT: Negative for injury, pain, and discharge, Neck: Negative for injury, pain, and swelling, Cardiovascular: Negative for chest pain, palpitations, and edema, Respiratory: Negative for shortness of breath, cough, wheezing, and pleuritic chest pain, Abdomen/GI: Negative for abdominal pain, nausea, vomiting, diarrhea, and constipation, Back: Negative for injury and pain, : Negative for injury, bleeding, discharge, and swelling, MS/Extremity: Negative for injury and deformity, Skin: Negative for injury, rash, and discoloration, Psych: Negative for depression, anxiety, suicide ideation, homicidal ideation, and hallucinations, Allergy/Immunology: Negative for hives, rash, and allergies, Endocrine: Negative for neck swelling, polydipsia, polyuria, polyphagia, and marked weight changes, Hematologic/Lymphatic: Negative for swollen nodes, abnormal bleeding, and unusual bruising. 04:29 Neuro: Positive for numbness, weakness, of the left side of head and left arm. Exam: 04:29 Constitutional: This is a well developed, well nourished patient who is awake, alert, kdr and in no acute distress. Head/Face: Normocephalic, atraumatic. Eyes: Pupils equal round and reactive to light, extra-ocular motions intact. Lids and lashes normal. Conjunctiva and sclera are non-icteric and not injected. Cornea within normal limits. Periorbital areas with no swelling, redness, or edema. Neck: Trachea midline, no thyromegaly or masses palpated, and no cervical lymphadenopathy. Supple, full range of motion without nuchal rigidity, or vertebral point tenderness. No Meningismus. Chest/axilla: Normal chest wall appearance and motion. Nontender with no deformity. No lesions are appreciated. Cardiovascular: Regular rate and rhythm with a normal S1 and S2. No gallops, murmurs, or rubs. Normal PMI, no JVD. No pulse deficits. Respiratory: Lungs have equal breath sounds bilaterally, clear to auscultation and percussion. No rales, rhonchi or wheezes noted. No increased work of breathing, no retractions or nasal flaring. Abdomen/GI: Soft, non-tender, with normal bowel sounds. No distension or tympany. No guarding or rebound. No evidence of tenderness throughout. Back: No spinal tenderness. No costovertebral tenderness. Full range of motion. Skin: Warm, dry with normal turgor. Normal color with no rashes, no lesions, and no evidence of cellulitis. MS/ Extremity: Pulses equal, no cyanosis. Neurovascular intact. Full, normal range of motion. Psych: Awake, alert, with orientation to person, place and time. Behavior, mood, and affect are within normal limits. 04:29 Neuro: Orientation: is normal, Mentation: is normal, Memory: is normal, Cranial nerves: grossly normal, Cerebellar function: is grossly normal, Motor: is normal, Sensation: numbness, that is mild, of the left side of head and left arm, tingling. Vital Signs: 03:51 BP 120 / 84; Pulse 59; Resp 16; Temp 98.2(TE); Pulse Ox 100% on R/A; Weight 73.94 kg jb4 (R); Height 5 ft. 4 in. (162.56 cm); Pain 0/10; 04:45 BP 108 / 77; Pulse 60; Resp 14; Pulse Ox 97% on R/A; jb4 06:15 BP 120 / 75; Pulse 61; Resp 14; Pulse Ox 97% on R/A; jb4 07:13 BP 115 / 87; Pulse 72; Pulse Ox 98% ; ko1 08:30 BP 108 / 92; Pulse 68; Pulse Ox 99% on R/A; ko1 09:09 BP 109 / 77; Pulse 70; Pulse Ox 100% ; ko1 03:51 Body Mass Index 27.98 (73.94 kg, 162.56 cm) jb4 NIH Stroke Scale Scores: 04:25 NIHSS Score: 1 jb4 04:29 NIHSS Score: 1 kdr 07:15 NIHSS Score: 1 ko1 MDM: 04:29 Data reviewed: vital signs, nurses notes, lab test result(s), radiologic studies. kdr Counseling: I had a detailed discussion with the patient and/or guardian regarding: the historical points, exam findings, and any diagnostic results supporting the discharge/admit diagnosis, lab results, radiology results. 09:26 ED course: Patient signed out to me by night physician. MRI of the cervical spine is sp3 normal. Patient has no residual symptoms at this time. We will discharge patient home to patient's own neurologist for follow-up and any other outpatient work-up as needed.. 09:26 Patient medically screened. sp3 06/24 03:55 Order name: Basic Metabolic Panel; Complete Time: 04:50 kdr 06/24 03:55 Order name: CBC with Diff; Complete Time: 04:50 kdr 06/24 03:55 Order name: High Sensitivity Troponin; Complete Time: 04:50 kdr 06/24 03:55 Order name: Protime (+inr); Complete Time: 04:50 kdr 06/24 03:55 Order name: Ptt, Activated; Complete Time: 04:50 kdr 06/24 04:26 Order name: Glucose, Ancillary Testing; Complete Time: 04:50 EDMS 06/24 03:55 Order name: CT Stroke Brain w/o Contrast kdr 06/24 03:55 Order name: Stroke CXR 1 View kdr 06/24 03:55 Order name: EKG; Complete Time: 03:56 kdr 06/24 03:55 Order name: Accucheck; Complete Time: 04:29 kdr 06/24 03:55 Order name: Cardiac monitoring; Complete Time: 04:29 kdr 06/24 03:55 Order name: EKG - Nurse/Tech; Complete Time: 04:29 kdr 06/24 03:55 Order name: IV Saline Lock; Complete Time: 04:29 kdr 06/24 06:14 Order name: MRI - Brain Wo Cont; Complete Time: 09:19 kdr 06/24 03:55 Order name: Labs collected and sent; Complete Time: 04:30 kdr 06/24 03:55 Order name: NPO; Complete Time: 04:30 kdr 06/24 03:55 Order name: O2 Per Protocol; Complete Time: 04:30 kdr 06/24 03:55 Order name: O2 Sat Monitoring; Complete Time: 04:30 kdr 06/24 03:55 Order name: Stroke Swallow Screen; Complete Time: 04:30 kdr Administered Medications: No medications were administered Disposition Summary: 06/24/22 09:26 Discharge Ordered Location: Home sp3 Condition: Stable sp3 Diagnosis - Paresthesia of skin sp3 Followup: sp3 - With: Private Physician - When: Upon discharge from the Emergency Department - Reason: Recheck today's complaints Discharge Instructions: - Discharge Summary Sheet sp3 - Paresthesia sp3 Forms: - Medication Reconciliation Form sp3 - Thank You Letter sp3 - Antibiotic Education sp3 - Prescription Opioid Use sp3 NIH Stroke Scale - NIH Stroke Score Date: 06/24/2022 Time: 04:25 Total Score = 1 1a. Level of Consciousness (LOC) - 0(Alert) 1b. Level of Consciousness (LOC) (Month \T\ Age) - 0(Both) 1c. LOC Commands (Open \T\ Closes Eyes/Product Analyst) - 0(Both) 2. Best Gaze (Lateral Gaze Paresis) - 0(Normal) 3. Visual Field Loss - 0(No visual loss) 4. Facial Palsy - 0(Normal) 5a. Left Arm: Motor (10-second hold) - 0(No drift) 5b. Right Arm: Motor (10-second hold) - 0(No drift) 6a. Left Leg: Motor (5-second hold - always test supine) - 0(No drift) 6b. Right Leg: Motor (5-second hold - always test supine) - 0(No drift) 7. Limb Ataxia (finger/nose \T\ heel/garduno - test with eyes open) - 0(Absent) 8. Sensory Loss (pinprick arms/legs/face) - 1(Mild to moderate loss) 9. Best Language: Aphasia (description/naming/reading) - 0(No aphasia) 10. Dysarthria (speech clarity - read or repeat words) - 0(Normal) 11. Extinction and Inattention (visual/tactile/auditory/spatial/personal) - 0(No abnormality) Initials: jb4 NIH Stroke Scale - NIH Stroke Score Date: 06/24/2022 Time: 04:29 Total Score = 1 1a. Level of Consciousness (LOC) - 0(Alert) 1b. Level of Consciousness (LOC) (Month \T\ Age) - 0(Both) 1c. LOC Commands (Open \T\ Closes Eyes/Product Analyst) - 0(Both) 2. Best Gaze (Lateral Gaze Paresis) - 0(Normal) 3. Visual Field Loss - 0(No visual loss) 4. Facial Palsy - 0(Normal) 5a. Left Arm: Motor (10-second hold) - 0(No drift) 5b. Right Arm: Motor (10-second hold) - 0(No drift) 6a. Left Leg: Motor (5-second hold - always test supine) - 0(No drift) 6b. Right Leg: Motor (5-second hold - always test supine) - 0(No drift) 7. Limb Ataxia (finger/nose \T\ heel/garduno - test with eyes open) - 0(Absent) 8. Sensory Loss (pinprick arms/legs/face) - 1(Mild to moderate loss) 9. Best Language: Aphasia (description/naming/reading) - 0(No aphasia) 10. Dysarthria (speech clarity - read or repeat words) - 0(Normal) 11. Extinction and Inattention (visual/tactile/auditory/spatial/personal) - 0(No abnormality) Initials: [facility] NIH Stroke Scale - NIH Stroke Score Date: 06/24/2022 Time: 07:15 Total Score = 1 1a. Level of Consciousness (LOC) - 0(Alert) 1b. Level of Consciousness (LOC) (Month \T\ Age) - 0(Both) 1c. LOC Commands (Open \T\ Closes Eyes/Product Analyst) - 0(Both) 2. Best Gaze (Lateral Gaze Paresis) - 0(Normal) 3. Visual Field Loss - 0(No visual loss) 4. Facial Palsy - 0(Normal) 5a. Left Arm: Motor (10-second hold) - 0(No drift) 5b. Right Arm: Motor (10-second hold) - 0(No drift) 6a. Left Leg: Motor (5-second hold - always test supine) - 0(No drift) 6b. Right Leg: Motor (5-second hold - always test supine) - 0(No drift) 7. Limb Ataxia (finger/nose \T\ heel/garduno - test with eyes open) - 0(Absent) 8. Sensory Loss (pinprick arms/legs/face) - 1(Mild to moderate loss) 9. Best Language: Aphasia (description/naming/reading) - 0(No aphasia) 10. Dysarthria (speech clarity - read or repeat words) - 0(Normal) 11. Extinction and Inattention (visual/tactile/auditory/spatial/personal) - 0(No abnormality) Initials: ko1 Signatures: Dispatcher [employer] EDRock Germain MD MD kdr Noe Sanabria, ROWENA RN jb4 Vance Narayanan MD MD sp3 Sofia Begum, PA-C PA-C sb4
[2022-06-24 10:07] VITALS: TEMP 98.2
[2022-06-24 10:17] VITALS: BP 109/77; O2SAT 100
--- NOTE | 2022-06-24 11:37 | RAD REPORT ---
EXAM DESCRIPTION: CT - Ct Stroke Brain Wo Cont - 06/24/2022 6:37 am ADDENDUM #1 THIS REPORT CONTAINS FINDINGS THAT MAY BE CRITICAL TO PATIENT CARE: The findings were verbally discu ssed via telephone conference with Dr. Yao 4:37 AM central time June 24, 2022. The results were acknowledged and understood. Electronically signed by: Emma Baker MD 06/24/2022 4:37 AM HELP DESK SUPERVISOR End of Addendum EXAM DESCRIPTION: CT Head Without Intravenous Contrast CLINICAL HISTORY: The patient is 31 years old and is Female; Face and arm numbness TECHNIQUE: Axial computed tomography images of the head/brain without intravenous contrast. Sagitt al and coronal reformatted images were created and reviewed. This CT exam was performed using one o r more of the following dose reduction techniques: automated exposure control, adjustment of the mA and/or kV according to patient size, and/or use of iterative reconstruction technique. COMPARISON: No relevant prior studies available. FINDINGS: Brain: Unremarkable. No hemorrhage. No significant white matter disease. No edema. Ventricles: Unremarkable. No ventriculomegaly. Bones/joints: Unremarkable. No acute skull fracture. Soft tissues: Unremarkable. Sinuses: Unremarkable as visualized. No acute sinusitis. Mastoid air cells: No significant mastoid fluid. IMPRESSION: No acute intracranial findings. No hemorrhage. Electronically signed by: Emma Baker MD 06/24/2022 4:30 AM HELP DESK SUPERVISOR Due to temporary technical issues with the PACS/Fluency reporting system, reports are being signed by the in house radiologists without review as a courtesy to insure prompt reporting. The interpreting radiologist is fully responsible for the content of the report.
--- NOTE | 2022-06-24 11:43 | RAD REPORT ---
EXAM DESCRIPTION: RAD - Chest Single View - 06/24/2022 4:36 am CLINICAL HISTORY: The patient is 31 years old and is Female; Face and arm numbness TECHNIQUE: Frontal view of the chest. COMPARISON: No relevant prior studies available. FINDINGS: LUNGS: Unremarkable. No consolidation. PLEURAL SPACE: Unremarkable. No pneumothorax. HEART: Unremarkable. No cardiomegaly. MEDIASTINUM: Unremarkable. BONES/JOINTS: Scoliotic curvature of the spine is present. UPPER ABDOMEN: Unremarkable as visualized. IMPRESSION: No acute cardiopulmonary process. Electronically signed by: Fatou Pedro MD 06/24/2022 4:47 AM BIOLOGICAL TECHNICAL OFFICER Due to temporary technical issues with the PACS/Fluency reporting system, reports are being signed by the in house radiologists without review as a courtesy to insure prompt reporting. The interpreting radiologist is fully responsible for the content of the report.
== END 2022-06-24 09:47 | disposition home or self-care (01) ==
LOC: ER 03:43
DX: R20.2 Paresthesia of skin (principal); Z88.3 Allergy status to other anti-infective agents; Z88.5 Allergy status to narcotic agent
CPT/HCPCS: 36415; 70450; 70551; 71045; 80048; 82947; 84484; 85025; 85610; 85730; 93005; 99285

== ENCOUNTER 2023-12-21 14:36 | Inpatient (IN) | payer BC, OTHER ==
[2023-12-21 15:56] LABS: Absolute Lymphocytes (CBC) 1.6 K/uL (0.7-4.9); Absolute Monocytes 0.4 K/uL (0.1-1.3); Absolute Neutrophil 3.7 K/uL (1.8-8.0); Basophils % 0.5 % (0-1.3); Eosinophils % 0.5 % (0-4.4); Hematocrit 38.5 % (36.0-45.0); Hemoglobin 12.7 g/dL (12.0-15.0); Lymphocytes % 27.5 % (15.3-44.8); MCH 28.5 pg (27.0-35.0); MCHC 33.1 g/dL (32.0-36.0); MCV 86.1 fL (80-100); MPV 8.5 fL (7.6-11.3); Monocytes % 6.3 % (3.3-12.3); Neutrophils % 65.2 % (41.7-73.7); Platelets 228 thou/uL (152-406); RBC Red Blood Cell Count 4.46 M/uL (3.86-4.86); Red Cell Distribution Width 14.8 % (12.1-15.2)
--- NOTE | 2023-12-21 15:59 | RAD REPORT ---
EXAM DESCRIPTION: CT - Head Brain Wo Cont - 12/21/2023 3:18 pm CLINICAL HISTORY: DIZZINESS COMPARISON: Ct Stroke Brain Wo Cont dated 06/24/2022; Head Brain Wo Cont dated 01/02/2016; Neck Angio dated 12/21/2023; Head angio dated 12/21/2023 TECHNIQUE: Noncontrast head CT images were obtained without IV contrast. Multiplanar reformats were generated and reviewed. All CT scans are performed using dose optimization technique as appropriate and may include automated exposure control or mA/KV adjustment according to patient size. FINDINGS: No intracranial hemorrhage, mass, or edema. Midline structures are unremarkable. Normal ventricular caliber for age. Anderson-white matter differentiation is preserved, without evidence of acute infarct. No abnormal extra- axial fluid collections. Mastoid air cells and visualized portions of the paranasal sinuses are clear. No acute bony findings. IMPRESSION: No evidence of an acute intracranial process.
[2023-12-21 16:11] LABS: PT Prothrombin Time 11.7 SECONDS (9.5-12.5); PTT, Activated Partial Thromb 25.6 SECONDS (24.3-36.9); Protime INR 1.07
[2023-12-21 16:14] LABS: ALT/SGPT 22 U/L (13-56); Albumin 3.9 g/dL (3.4-5.0); Alkaline Phosphatase 71 U/L (45-117); Anion Gap 7.7 mEq/L (5.0-15.0); BUN Blood Urea Nitrogen 11 mg/dL (7-18); Bicarbonate 28 mEq/L (21-32); Bilirubin Total 0.7 mg/dL (0.2-1.0); Glomerular Filtration Rate 97 ml/min (=/>90); Glucose Level 102 mg/dL (74-106); Magnesium 2.1 mg/dL (1.6-2.4); Potassium 3.7 mEq/L (3.5-5.1); Protein, Total 7.9 g/dL (6.4-8.2); Sodium Level 140 mEq/L (136-145); Troponin High Sensitivity 7.1 pg/mL (<58.9)
[2023-12-21 16:25] LABS: AST/SGOT < 10 U/L (15-37); Bilirubin Direct < 0.2 mg/dL (0-0.2); Bilirubin Indirect, Calculated 0.5 mg/dL (0.2-0.8)
--- NOTE | 2023-12-21 17:17 | RAD REPORT ---
EXAM DESCRIPTION: CT - Head angio - 12/21/2023 3:36 pm CLINICAL HISTORY: dizzy COMPARISON: Head Brain Wo Cont dated 12/21/2023; Ct Stroke Brain Wo Cont dated 06/24/2022; Brain Wo C ont dated 12/21/2023; Neck Angio dated 12/21/2023 TECHNIQUE: Axial CT angiography images of the head was performed with multiplanar and maximum intens ity projection reconstructions. Images performed following intravenous administration of 100mL Isovue 370. All CT scans are performed using dose optimization technique as appropriate and may include automated exposure control or mA/KV adjustment according to patient size. FINDINGS: Sluggish opacification of the vertebral arteries and basilar artery, likely due to is subo ptimal contrast timing, which somewhat limits evaluation. No evidence of large vessel occlusion. No evidence of aneurysm or dissection flap is detected. No gregg w-limiting stenosis or vascular malformation identified. Antegrade flow is seen in the vertebral arteries. The vertebral arteries are codominant. The visualized dural venous sinuses are grossly patent. IMPRESSION: No evidence of large vessel occlusion or flow-limiting stenosis.
--- NOTE | 2023-12-21 17:36 | RAD REPORT ---
EXAM DESCRIPTION: CT - Neck Angio - 12/21/2023 3:36 pm CLINICAL HISTORY: dizzy COMPARISON: Brain Wo Cont dated 12/21/2023; Head angio dated 12/21/2023 TECHNIQUE: Axial CT angiography images of the neck was performed with multiplanar and maximum intens ity projection reconstructions. Images performed following intravenous administration of 100mL Isovue 370. All CT scans are performed using dose optimization technique as appropriate and may include automated exposure control or mA/KV adjustment according to patient size. Quantification of carotid stenosis, if any, is performed according to NASCET criteria. FINDINGS: Suboptimal contrast timing in the distal vertebral arteries bilaterally somewhat limits ev aluation, however they appear patent. A left aortic arch is identified with normal three vessel configuration of the great vessels. No significant flow abnormality is seen of the common carotid bilaterally. No significant stenosis is identified involving the cervical segments of both internal carotid arteri es. Normal flow is seen within both vertebral arteries. IMPRESSION: No significant flow abnormality of the neck vessels is identified. CAROTID STENOSIS REFERENCE USING NASCET CRITERIA: % ICA stenosis = (1 - narrowest ICA diameter/diameter of distal cervical ICA) x 100. Mild - <50% stenosis. Moderate - 50-69% stenosis. Severe - 70-94% stenosis. Near occlusion - 95-99% stenosis. Occluded - 100% stenosis.
--- NOTE | 2023-12-21 17:40 | RAD REPORT ---
EXAM DESCRIPTION: MRI - Brain Wo Cont - 12/21/2023 4:04 pm CLINICAL HISTORY: paresthesias, dizzy COMPARISON: Head CT and CT angiogram of the same day TECHNIQUE: Multiplanar multisequence MRI of the brain performed without IV contrast. FINDINGS: No evidence of acute infarct or other diffusion signal abnormality. No evidence of acute intracranial hemorrhage or abnormal extra-axial fluid collections. Ventricular caliber within normal for age. Midline structures are unremarkable. No significant white matter signal abnormalities. No mass effect or midline shift. Major vascular flow voids are preserved. Mastoid air cells and paranasal sinuses are clear. IMPRESSION: No acute intracranial process. No evidence of ventriculomegaly or mass effect.
[2023-12-21] MEDS ORDERED: MECLIZINE HCL 12.5 MG TAB ONE (17:52)
[2023-12-21] MEDS ORDERED: NA CHLORIDE 0.9% 1,000 ML ONE (17:52)
[2023-12-21 18:00] LABS: Urine Bilirubin NEGATIVE (Negative); Urine Blood Negative (Negative); Urine Clarity Clear (Clear); Urine Color Colorless (Yellow); Urine Glucose NEGATIVE (Negative); Urine Ketones NEGATIVE (Negative); Urine Microscopic Reflex YN NO UMIC; Urine Nitrite NEGATIVE (Negative); Urine Protein NEGATIVE (Negative); Urine Urobilinogen Normal (Normal); Urine pH 8.5 (5.0-7.0)
--- NOTE | 2023-12-21 18:00 | EDPHYS ---
Physician Documentation [facility] Name: Raza Botello Age: 33 yrs Sex: Female : 1990 Arrival Date: 12/21/2023 Time: 14:36 Bed 13 Private MD: ED Physician Zechariah Lind HPI: 12/20 15:10 This 33 yrs old Female presents to ER via Unassigned with complaints of Dizziness, rn Chest Tightness. 15:10 The patient presents with lightheadedness, feeling off balance. Modifying factors: The rn symptoms are alleviated by holding head still, the symptoms are aggravated by changing position. Associated signs and symptoms: Pertinent positives: tingling. Severity of symptoms: At their worst the symptoms were moderate in the emergency department the symptoms have improved. The patient has experienced a previous episode. The patient has not recently seen a physician. 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 - Infectious Disease History:: Denies. - Social history:: Smoking status: Patient denies any tobacco usage or history of. - Family history:: not pertinent. - Hospitalizations: : No recent hospitalization is reported. ROS: 15:10 Constitutional: Negative for fever, chills, and weight loss, Eyes: Negative for injury, rn pain, redness, and discharge, Neck: Negative for injury, pain, and swelling, Cardiovascular: Negative for palpitations, and edema, Respiratory: Negative for shortness of breath, cough, wheezing, and pleuritic chest pain, Abdomen/GI: Negative for abdominal pain, nausea, vomiting, diarrhea, and constipation, Back: Negative for injury and pain, MS/Extremity: Negative for injury and deformity, Skin: Negative for injury, rash, and discoloration, Neuro: Positive for tingling of bilateral arms and legs. Negative for headache. Positive for dizziness. Exam: 15:10 Constitutional: This is a well developed, well nourished patient who is awake, alert, rn and in no acute distress. Ambulatory to room without assistance Head/Face: Normocephalic, atraumatic. Eyes: Pupils equal round and reactive to light, extra-ocular motions intact. Neck: No Meningismus. Cardiovascular: Regular rate and rhythm. No pulse deficits. Respiratory: No increased work of breathing, no retractions or nasal flaring. Abdomen/GI: Soft, non-tender MS/ Extremity: Pulses equal, no cyanosis. Neurovascular intact. Full, normal range of motion. Equal circumference. Neuro: Awake and alert, GCS 15, oriented to person, place, time, and situation. Cranial nerves II-XII grossly intact. Motor strength 5/5 in all extremities. Sensory grossly intact. Slow gait. Dizziness not reproducible with any change in motion. 17:15 ECG was reviewed by the Attending Physician. rn Vital Signs: 15:04 BP 133 / 94; Pulse 88; Resp 18; Temp 97.5; Pulse Ox 100% ; Weight 81.65 kg; Height 5 as6 ft. 4 in. ; Pain 0/10; 16:00 BP 108 / 77; Pulse 79; Resp 10; Pulse Ox 100% on R/A; nj1 17:13 BP 122 / 84; Pulse 88; Resp 15; Pulse Ox 99% on R/A; nj1 19:10 BP 123 / 69; Pulse 96; Resp 16; Temp 97.5(TE); Pulse Ox 100% on R/A; nj1 15:04 Body Mass Index 30.90 (81.65 kg, 162.56 cm) as6 15:04 Pain Scale: Adult as6 MDM: 14:42 Patient medically screened. rn 15:10 ED course: No focal neurological findings on exam other than slow ambulation. Patient rn states her symptoms have gotten better, not 100% gone but mainly resolved. States that this began around noon time and is taken a few hours to improve but getting there. Denies any unilateral weakness or numbness at this time. Reports numbness or tingling was to bilateral extremities. Patient has had complicated migraines in the past but currently denies headache. Will workup for other intracranial pathology.. 17:58 Differential diagnosis: cardiac arrhythmia, CVA, generalized weakness, rn hyperventilation, hypovolemia, idiopathic dizziness, near-syncope, TIA, vertigo. Data reviewed: vital signs, nurses notes, lab test result(s), EKG, radiologic studies, CT scan, MRI, and as a result, I will admit patient. Consideration of Admission/Observation Patient was admitted/placed on observation. Escalation of care including admission/observation considered. Counseling: I had a detailed discussion with the patient and/or guardian regarding the historical points, exam findings, and any diagnostic results supporting the discharge/admit diagnosis, lab results, radiology results, the need for further work-up and treatment in the hospital. ED course: Patient still having some difficulty walking. Has never happened to her before. MRI and CT angio is negative for acute findings. Recommendation is to admit for neurological consultation and observation.. 12/20 15:03 Order name: Basic Metabolic Panel; Complete Time: 16:59 rn 12/20 15:03 Order name: CBC with Diff; Complete Time: 16:59 rn 12/20 15:03 Order name: Hepatic Function; Complete Time: 16:59 12/20 15:03 Order name: Magnesium; Complete Time: 16:59 12/20 15:03 Order name: Test, Urine rn 12/20 15:03 Order name: Protime (+inr); Complete Time: 16:59 rn 12/20 15:03 Order name: Ptt, Activated; Complete Time: 16:59 rn 12/20 15:03 Order name: Troponin High Sensitivity; Complete Time: 16:59 rn 12/20 15:03 Order name: Urinalysis w/ reflexes; Complete Time: 18:20 rn 12/20 18:44 Order name: Urinalysis w/ reflexes EDMS 12/20 18:44 Order name: CBC with Automated Diff EDMS 12/20 18:44 Order name: CBC with Automated Diff EDMS 12/20 18:44 Order name: Comprehensive Metabolic Panel EDMS 12/20 18:44 Order name: Comprehensive Metabolic Panel EDMS 12/20 18:44 Order name: Magnesium EDMS 12/20 18:44 Order name: Magnesium EDMS 12/20 18:44 Order name: Phosphorus EDMS 12/20 18:44 Order name: Phosphorus EDMS 12/20 15:03 Order name: CT Head Brain wo Cont; Complete Time: 16:59 rn 12/20 15:03 Order name: Chest Single View XRAY; Complete Time: 18:20 rn 12/20 15:03 Order name: Brain Wo Cont MRI; Complete Time: 17:42 rn 12/20 15:19 Order name: Head angio; Complete Time: 17:19 EDOR 12/20 15:19 Order name: Neck Angio; Complete Time: 17:42 EDOR 12/20 15:03 Order name: Cardiac monitoring; Complete Time: 16:13 rn 12/20 15:03 Order name: EKG - Nurse/Tech; Complete Time: 16:13 rn 12/20 15:03 Order name: IV Saline Lock; Complete Time: 16:13 rn 12/20 15:03 Order name: Labs collected and sent; Complete Time: 15:47 rn 12/20 15:03 Order name: O2 Per Protocol; Complete Time: 16:13 rn 12/20 15:03 Order name: O2 Sat Monitoring; Complete Time: 16:13 rn EC:15 Rate is 93 beats/min. Rhythm is regular. QRS [place] is Normal. UT interval is normal. QRS rn interval is normal. QT interval is normal. No Q waves. T waves are Normal. No ST changes noted. Clinical impression: NSR w/ Non-specific ST/T Changes. Interpreted by me. Reviewed by me. Administered Medications: 17:59 Drug: NS 0.9% IV 1000 ml IV at 1000 ml once Route: IV; Rate: 1000 ml; Site: right nj1 antecubital; 17:59 Drug: Meclizine PO 50 mg PO once Route: PO; nj1 Disposition Summary: 12/21/23 18:00 Hospitalization Ordered Notes: Hospitalization Status: Observation rn Provider: Yung Zamarripa rn Location: Telemetry/MedSurg (observation) rn Condition: Stable rn Problem: new rn Symptoms: have improved rn Bed/Room Type: Standard rn Room Assignment: 409(12/21/23 18:52) bc6 Diagnosis - Dizziness and giddiness rn - Ataxic gait rn Forms: - Medication Reconciliation Form rn - SBAR form rn - Leadership Thank You Letter rn Signatures: Dispatcher [employer] Ritika Jeff, RN Zechariah Armenta MD MD rn Slawson, Ashby, RN RN as6 Kerline Leon bc6 Melissa Max RN RN nj1 Corrections: (The following items were deleted from the chart) 15:04 15:04 BASIC METABOLIC PANEL+C.LAB.BRZ ordered. EDMS EDMS 15:04 15:04 CBC+H.LAB.BRZ ordered. EDMS EDMS 15:04 15:04 HEPATIC FUNCTION+C.LAB.BRZ ordered. EDMS EDMS 15:04 15:04 MAGNESIUM+C.LAB.BRZ ordered. EDMS EDMS 15:04 15:04 Test, Urine+UC.LAB.BRZ ordered. EDMS EDMS 15:04 15:04 PROTIME (+INR)+COAG.LAB.BRZ ordered. EDMS EDMS 15:04 15:04 PTT, ACTIVATED+COAG.LAB.BRZ ordered. EDMS EDMS 15:04 15:04 Troponin High Sensitivity+C.LAB.BRZ ordered. EDMS EDMS 15:04 15:04 Urinalysis+U.LAB.BRZ ordered. EDMS EDMS 15:04 15:04 Chest Single View+RAD.RAD.BRZ ordered. EDMS EDMS 15:20 15:06 Neck Angio+CT.RAD.BRZ ordered. EDMS EDMS 15:20 15:06 Head Angio+CT.RAD.BRZ ordered. EDMS EDMS 18:52 18:00 rn dw 18:52 18:52 409 dw bc6
--- NOTE | 2023-12-21 18:00 | ER ---
Nurse's Notes [facility] Name: Raza Botello Age: 33 yrs Sex: Female : 1990 Arrival Date: 12/21/2023 Time: 14:36 Bed 13 Private MD: Diagnosis: Dizziness and giddiness;Ataxic gait Presentation: 12/20 15:09 Chief complaint: Patient states: dizziness and numbness episode that started today. as6 Coronavirus screen: At this time, the client does not indicate any symptoms associated with coronavirus-19. Ebola Screen: No symptoms or risks identified at this time. Initial Sepsis Screen: Does the patient meet any 2 criteria? No. Patient's initial sepsis screen is negative. Does the patient have a suspected source of infection? No. Patient's initial sepsis screen is negative. Risk Assessment: Do you want to hurt yourself or someone else? Patient reports no desire to harm self or others. Onset of symptoms was December 21, 2023. 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 - Infectious Disease History:: Denies. - Social history:: Smoking status: Patient denies any tobacco usage or history of. - Family history:: not pertinent. - Hospitalizations: : No recent hospitalization is reported. Screenin:20 [facility] ED Fall Risk Assessment (Adult) History of falling in the last 3 months, nj1 including since admission No falls in past 3 months (0 pts) Confusion or Disorientation No (0 pts) Intoxicated or Sedated No (0 pts) Impaired Gait No (0 pts) Mobility Assist Device Used No (0 pt) Altered Elimination No (0 pt) Score/Fall Risk Level 0 - 2 = Low Risk Oriented to surroundings, Maintained a safe environment, Hourly rounding (assess needs \T\ fall precautionary measures) done. Abuse screen: Denies threats or abuse. Denies injuries from another. Nutritional screening: No deficits noted. Tuberculosis screening: No symptoms or risk factors identified. Assessment: 15:30 General: Not in room, in imaging.. nj1 16:02 General: Not in room, in imaging.. nj1 16:05 General: Appears in no apparent distress. comfortable, Behavior is calm, cooperative, nj1 appropriate for age. 16:05 Pain: Denies pain. Neuro: Level of Consciousness is awake, alert, obeys commands, nj1 Oriented to person, place, time, situation, Denies dizziness. Cardiovascular: Denies chest pain, Patient's skin is warm and dry. Respiratory: Airway is patent Respiratory effort is even, unlabored. 17:20 Reassessment: Patient appears in no apparent distress at this time. Patient and/or nj1 family updated on plan of care and expected duration. Pain level reassessed. Patient is alert, oriented x 3, equal unlabored respirations, skin warm/dry/pink. 19:10 Reassessment: Patient appears in no apparent distress at this time. Patient and/or nj1 family updated on plan of care and expected duration. Pain level reassessed. Patient is alert, oriented x 3, equal unlabored respirations, skin warm/dry/pink. Vital Signs: 15:04 BP 133 / 94; Pulse 88; Resp 18; Temp 97.5; Pulse Ox 100% ; Weight 81.65 kg; Height 5 as6 ft. 4 in. ; Pain 0/10; 16:00 BP 108 / 77; Pulse 79; Resp 10; Pulse Ox 100% on R/A; nj1 17:13 BP 122 / 84; Pulse 88; Resp 15; Pulse Ox 99% on R/A; nj1 19:10 BP 123 / 69; Pulse 96; Resp 16; Temp 97.5(TE); Pulse Ox 100% on R/A; nj1 15:04 Body Mass Index 30.90 (81.65 kg, 162.56 cm) as6 15:04 Pain Scale: Adult as6 ED Course: 14:41 Patient arrived in ED. mg5 14:42 Zechariah Lind MD is Attending Physician. rn 15:04 Arm band placed on. as6 15:10 Triage completed. as6 15:14 Melissa Max, ROWENA is Primary Nurse. nj1 15:19 CT Head Brain wo Cont In Process Unspecified. EDMS 15:38 Head angio In Process Unspecified. EDMS 15:38 Neck Angio In Process Unspecified. EDMS 16:03 Chest Single View XRAY In Process Unspecified. EDMS 16:03 Brain Wo Cont MRI In Process Unspecified. EDMS 16:05 Patient has correct armband on for positive identification. Bed in low position. Call [facility] light in reach. Adult w/ patient. Provided Education on: call light, fall precautions. Client placed on continuous cardiac and pulse oximetry monitoring. NIBP monitoring applied. corporate pilot on. 16:10 EKG done, by ED staff, reviewed by Zechariah Lind MD. nj1 16:14 IV is patent, Flushed right antecubital with 5 ml normal saline. nj1 17:59 Yung Zamarripa MD is Hospitalizing Provider. rn 19:23 No provider procedures requiring assistance completed. Patient admitted, IV remains in [facility] place. Administered Medications: 17:59 Drug: NS 0.9% IV 1000 ml IV at 1000 ml once Route: IV; Rate: 1000 ml; Site: right [facility] antecubital; 17:59 Drug: Meclizine PO 50 mg PO once Route: PO; [facility] Medication: 19:24 VIS not applicable for this client. [facility] Outcome: 18:00 Decision to Hospitalize by Provider. rn 19:23 Admitted to Tele room 409, [facility] 19:23 Condition: stable 19:23 Instructed on the need for admit, 20:36 Patient left the ED. [facility] Signatures: Dispatcher [employer] EDMS Zechariah Lind MD MD rn Slawson, Ashby, RN RN as6 Aileen Richter RN RN 1 Melissa Max RN RN nj [place] [id number]
[2023-12-21 18:03] LABS: Specific Gravity > 1.030 (1.005-1.030)
--- NOTE | 2023-12-21 18:18 | RAD REPORT ---
EXAM DESCRIPTION: RADChest Single View12/21/2023 4:01 pm CLINICAL HISTORY: dizziness COMPARISON: Chest Single View dated 06/24/2022; CHEST PA AND LAT 2 VIEW dated 12/17/2009; CHEST PA AND LAT 2 VIEW dated 07/18/2006 TECHNIQUE: Portable AP view of the chest. FINDINGS: The lungs are clear. No pneumothorax or effusion. The cardiomediastinal contours are unre markable. IMPRESSION: No acute cardiopulmonary process.
[2023-12-21] MEDS ORDERED: ONDANSETRON 4 MG/2 ML VIAL IV PRN (18:37)
[2023-12-21] MEDS ORDERED: ALBUTEROL 2.5 MG/3 ML NEB SOL NEB PRN (18:37)
--- NOTE | 2023-12-21 18:37 | P.HP ---
Certification for Inpatient Patient admitted to: Observation With expected LOS: <2 Midnights Practitioner: I am a practitioner with admitting privileges, knowledge of patient current condition, hospital course, and medical plan of care. Services: Services provided to patient in accordance with Admission requirements found in Title 42 Section 412.3 of the Code of Federal Regulations Patient History Date of Service: 12/21/23 Reason for admission: Dizziness History of Present Illness: 33 yrs old Female with past medical history of gastritis, GERD, hernia, scoliosis, history of complicated migraine with possible strokelike symptoms in the past presents with dizziness and difficulty in ambulating started all of a sudden today afternoon when she was about to drive car. Denies any trauma denies any chest pain or shortness of breath. Denies any nausea vomiting or diarrhea. Patient denies any chest pain at this time or headache. No fever or chills. Symptoms started all of a sudden with extreme fatigue and dizziness and balancing issues . She cannot stand and ambulate for a few hours.. No focal weakness. Denies any photophobia. Patient also complains of tingling all over the body. Patient was assessed in the ER and was admitted for possible stroke to rule out Allergies acetaminophen [From Darvocet-N] Allergy (Verified 10/09/15 16:25) Shortness of breath cefprozil [From Cefzil] Allergy (Verified 10/09/15 16:25) Rash Cephalosporins Allergy (Verified 12/21/23 21:03) Rash propoxyphene napsylate [From Darvocet-N] Allergy (Verified 10/09/15 16:25) Shortness of breath Darvocet-N 100 Allergy (Uncoded 12/21/23 21:03) vision loss Home Medications: Pantoprazole Sodium [Protonix] 40 mg PO DAILY 06/14/14 - Past Medical/Surgical History Past Medical History: Reviewed- Non-Contributory Past Surgical History: Reviewed- Non-Contributory - Family History Family History: Reviewed- Non-Contributory - Social History Smoking Status: Never smoker Review of Systems 10-point ROS is otherwise unremarkable Physical Examination - Vital Signs Temperature: 98.2 F Blood Pressure: 122/62 Pulse: 78 Respirations: 18 Pulse Ox (%): 94 - Physical Exam General: Alert, In no apparent distress, Oriented x3 HEENT: Atraumatic, Normocephalic Neck: Supple, 2+ carotid pulse no bruit, JVD not distended Respiratory: Clear to auscultation bilaterally, Normal air movement Cardiovascular: Normal pulses, Regular rate/rhythm, Normal S1 S2 Capillary refill: <2 Seconds Gastrointestinal: Soft and benign, W/out hepatosplenomegaly Musculoskeletal: No clubbing, No swelling Integumentary: No rashes, No breakdown Neurological: Normal speech, Normal strength at 5/5 x4 extr, Cranial nerves 3-12 intact, Normal reflexes 2+, Normal affect Lymphatics: No axilla or inguinal lymphadenopathy - Studies Laboratory Data (last 24 hrs) 12/21/23 12/21/23 12/21/23 15:41 15:41 15:41 WBC 5.60 Hgb 12.7 Hct 38.5 Plt Count 228 PT 11.7 INR 1.07 APTT 25.6 Sodium 140 Potassium 3.7 BUN 11 Creatinine 0.82 Glucose 102 Magnesium 2.1 Total Bilirubin 0.7 AST < 10 L ALT 22 Alkaline Phosphatase 71 Assessment and Plan - Problems (Diagnosis) (1) Dizziness Current Visit: Yes Status: Acute (2) Difficulty balancing Current Visit: Yes Status: Acute Plan: Dizziness To rule out posterior circulation stroke Stroke workup MRI Started on aspirin and statin Started on meclizine Dehydration IV hydration Monitor volume status Electrolytes monitor and replace accordingly Possible complicated migraine Pain control GI/DVT prophylaxis Advanced directive full code Discharge Plan: Home Plan to discharge in: 24 Hours - Advance Directives Does patient have a Living Will: No Does patient have a Durable POA for Healthcare: No - Code Status/Comfort Care Code Status: Full Code Time Spent Managing Pts Care (In Minutes): 48
[2023-12-21 19:06] LABS: Specific Gravity > 1.030 (1.005-1.030)
[2023-12-21] MEDS: NA CHLORIDE 0.9% 1,000 ML IV SCH (21:43)
[2023-12-21] MEDS: MECLIZINE HCL 12.5 MG TAB PO SCH (21:49)
[2023-12-21] MEDS: PANTOPRAZOLE 40MG TABLET PO SCH (23:51)
[2023-12-21] MEDS ORDERED: MAGNES/ALUMIN/SIMET 30ML UCUP PO PRN (23:52)
[2023-12-22 00:40] VITALS: BMI 31.0
[2023-12-22 06:22] LABS: Absolute Eosinophils 0.1 K/uL (0-0.5); Absolute Monocytes 0.4 K/uL (0.1-1.3); Absolute Neutrophil 2.1 K/uL (1.8-8.0); Basophils % 0.6 % (0-1.3); Eosinophils % 1.4 % (0-4.4); Hematocrit 34.5 % (36.0-45.0); Hemoglobin 11.6 g/dL (12.0-15.0); Lymphocytes % 44.6 % (15.3-44.8); MCH 29.1 pg (27.0-35.0); MCHC 33.5 g/dL (32.0-36.0); MCV 86.8 fL (80-100); MPV 8.3 fL (7.6-11.3); Monocytes % 8.1 % (3.3-12.3); Neutrophils % 45.3 % (41.7-73.7); Platelets 204 thou/uL (152-406); RBC Red Blood Cell Count 3.98 M/uL (3.86-4.86)
[2023-12-22 06:38] LABS: ALT/SGPT 17 U/L (13-56); Albumin 3.1 g/dL (3.4-5.0); Alkaline Phosphatase 56 U/L (45-117); Anion Gap 6.8 mEq/L (5.0-15.0); BUN Blood Urea Nitrogen 10 mg/dL (7-18); Bicarbonate 26 mEq/L (21-32); Bilirubin Total 0.3 mg/dL (0.2-1.0); Globulin 3.2 g/dL (2.3-3.5); Glomerular Filtration Rate 119 ml/min (=/>90); Glucose Level 105 mg/dL (74-106); Magnesium 2.2 mg/dL (1.6-2.4); Phosphorus 3.2 mg/dL (2.5-4.9); Potassium 3.8 mEq/L (3.5-5.1); Protein, Total 6.3 g/dL (6.4-8.2); Sodium Level 141 mEq/L (136-145)
[2023-12-22 06:40] LABS: AST/SGOT < 10 U/L (15-37)
[2023-12-22] MEDS: PANTOPRAZOLE 40MG TABLET PO SCH (07:29)
[2023-12-22] MEDS: POTASSIUM CL SA 10 MEQ TAB PO ONE (08:57)
[2023-12-22] MEDS: ASPIRIN EC 81 MG TAB PO SCH (08:58)
[2023-12-22] MEDS: ENOXAPARIN 40 MG/0.4 ML SQ SCH (09:00)
[2023-12-22 09:07] VITALS: O2SAT 98
[2023-12-22 10:18] LABS: Thyroid Stimulating Hormone 1.43 uIU/mL (0.358-3.740)
--- NOTE | 2023-12-22 14:23 | P.DS ---
Admission Date: 12/21/23 Discharge Date: 12/22/23 Disposition: ROUTINE DISCHARGE Discharge Condition: FAIR Reason for Admission: Dizziness - Problems (1) Gait disturbance Current Visit: Yes Status: Acute (2) Benign positional vertigo Current Visit: Yes Status: Acute (3) Dizziness Current Visit: Yes Status: Acute Brief History of Present Illness: 33 yrs old woman with past medical history of gastritis, GERD, hernia, scoliosis, history of complicated migraine with possible strokelike symptoms in the past presented with dizziness and unsteady gait of sudden onset when she was about to drive car. She had to stop driving, crawled to her neighbors house for help because she could not walk. She reported she was falling on the left side whenever she attempted to stand. She eventually had to hold onto toure in order to ambulate. She reported his symptoms were associated with fatigue and dizziness. She denied any headache or experiencing any of her migraine symptoms. Workup in the emergency department was unremarkable. MRI of the brain did not show any acute disease. Patient's symptoms significantly improved while in the ED. she was hospitalized for further evaluation and management. Hospital Course: Patient was placed under observation on the medical floor, hydrated with IV fluids. She was able to ambulate but reported mild dizziness with ambulation. She was evaluated by neurology Dr. Avery and patient's symptoms suspected to be related to benign positional vertigo. PT evaluated patient for vestibular rehab and Kolton maneuver. Acute stroke has been ruled out, patient symptoms have improved. She is discharged with meclizine for symptom treatment. Vital Signs/Physical Exam: Temp Pulse Resp BP Pulse Ox 97.2 F 80 16 102/62 99 12/22/23 08:00 12/22/23 08:00 12/22/23 08:00 12/22/23 08:00 12/22/23 08:00 General: Alert, In no apparent distress, Oriented x3 HEENT: Mucous membr. moist/pink Neck: Supple, JVD not distended Respiratory: Clear to auscultation bilaterally, Normal air movement Cardiovascular: No edema, Regular rate/rhythm, Normal S1 S2 Gastrointestinal: Normal bowel sounds, Soft and benign, Non-distended, No tenderness Musculoskeletal: No swelling Integumentary: No rashes Neurological: Normal speech, Normal strength at 5/5 x4 extr, Cranial nerves 3-12 intact Laboratory Data at Discharge: WBC 4.60 thou/uL (4.3-10.9) 12/22/23 05:56 Hgb 11.6 g/dL (12.0-15.0) L D 12/22/23 05:56 Hct 34.5 % (36.0-45.0) L 12/22/23 05:56 Plt Count 204 thou/uL (152-406) 12/22/23 05:56 PT 11.7 SECONDS (9.5-12.5) 12/21/23 15:41 INR 1.07 12/21/23 15:41 APTT 25.6 SECONDS (24.3-36.9) 12/21/23 15:41 Sodium 141 mEq/L (136-145) 12/22/23 05:56 Potassium 3.8 mEq/L (3.5-5.1) 12/22/23 05:56 BUN 10 mg/dL (7-18) 12/22/23 05:56 Creatinine 0.67 mg/dL (0.55-1.02) 12/22/23 05:56 Glucose 105 mg/dL (74-106) 12/22/23 05:56 Phosphorus 3.2 mg/dL (2.5-4.9) 12/22/23 05:56 Magnesium 2.2 mg/dL (1.6-2.4) 12/22/23 05:56 Total Bilirubin 0.3 mg/dL (0.2-1.0) 12/22/23 05:56 AST < 10 U/L (15-37) L 12/22/23 05:56 ALT 17 U/L (13-56) 12/22/23 05:56 Alkaline Phosphatase 56 U/L (45-117) D 12/22/23 05:56 Home Medications: Pantoprazole Sodium [Protonix] 40 mg PO DAILY 06/14/14 Meclizine HCl [Antivert*] 25 mg PO TID #30 tab 12/22/23 Ondansetron [Zofran] 4 mg PO Q6H PRN #20 tab 12/22/23 New Medications: Meclizine HCl [Antivert*] 25 mg PO TID #30 tab Ondansetron [Zofran] 4 mg PO Q6H PRN #20 tab PRN Reason: Nausea / Vomiting Followup: Dmitri Aldridge DO [Primary Care Provider] - 1-2 Weeks Time spent managing pt's care (in minutes): 28
[2023-12-22] MEDS: ACETAMINOPHEN 325 MG TABLET PO PRN (15:03)
[2023-12-22 15:12] VITALS: BP 117/73; TEMP 97.8
[2023-12-22] MEDS ORDERED: ATORVASTATIN 40 MG TAB PO SCH (21:00)
--- NOTE | 2023-12-26 15:11 | EKG ---
Test Date: 2023-12-21 Test Time: 16:07:39 [employer]istro Server: DAVIDSON MEASUREMENT RESULTS: Intervals: Rate: 93 UT: 148 QRSD: 74 QT: 354 QTc: 440 [place]: P: 71 UT: 148 QRS: 71 T: 54 INTERPRETIVE STATEMENTS: Sinus rhythm with marked sinus arrhythmia Otherwise normal ECG Compared to ECG 06/24/2022 04:17:51 Sinus bradycardia no longer present ST (T wave) deviation no longer present Electronically Signed On 12-26-23 14:56:59 CDT by Abdon Castillo
== END 2023-12-22 18:16 | disposition home or self-care (01) | DRG 149 ==
LOC: ER 14:36 → ERHOLD 18:37 → 4TH 20:05
PROVIDERS: ADMIT Family Medicine; ATTEND Internal Medicine
DX: H81.10 Benign paroxysmal vertigo, unspecified ear (principal); E86.0 Dehydration; K21.9 Gastro-esophageal reflux disease without esophagitis; R26.9 Unspecified abnormalities of gait and mobility; Z88.1 Allergy status to other antibiotic agents; Z88.5 Allergy status to narcotic agent; Z88.8 Allergy status to other drugs, medicaments and biological substances; Z79.899 Other long term (current) drug therapy
CPT/HCPCS: 36415; 70450; 70496; 70498; 70551; 71045; 80048; 80053; 80076; 81003; 81025; 82533; 82947; 83735; 84100; 84439; 84443; 84484; 85025; 85610; 85730; 93005; 94760; 97110; 97163; 97530; 99285; J1650; J7030; J8597; Q9967